=== PATIENT | female | born 1985 | race Caucasian/White ===

== ENCOUNTER 2016-12-06 17:56 | Outpatient (CLI) | payer BC ==
[~2016-12-06] VITALS: Ht 165.1 cm; Wt 82.3 kg
[~2016-12-06 17:56] MED LIST: AGM875 PO; DRV100 PO; PRED10TA PO
[2016-12-06] MEDS ORDERED: PRENTAB26 PO (20:01)
[2016-12-06] MEDS ORDERED: [UNRECOGNIZED DRUG - CODE] (20:01)
[2016-12-06 20:02] VITALS: Ht 165.1 cm; Wt 82.3 kg
--- NOTE | 2016-12-09 11:29 | EDITING REQUIRED CODING QUERY ---
CERVICAL DILATOR A cervical dilator was noted to be inserted in nursing documentation on 12/06/16. Please clarify below regarding this procedure: ( X) Cervical dilator was inserted BRIEF DESCRIPTION: Moreno balloon for ripening placed and nst performed. ( ) Cervical dilator was not inserted ( ) Other, please clarify: Thank you for your assistance, Paradise Duckworth - Airport Attendant
== END 2016-12-06 20:15 | disposition home or self-care (01) ==
LOC: C.OPB 17:56 → C.LD 17:56 → C.OPB 20:15
PROVIDERS: ATTEND Obstetrics & Gynecology
DX: O48.0 Post-term pregnancy (principal); Z3A.41 41 weeks gestation of pregnancy

== ENCOUNTER 2016-12-07 05:59 | Inpatient (IN) | payer BC ==
[~2016-12-07] VITALS: Ht 165.1 cm; Wt 82.3 kg
[~2016-12-07 05:59] MED LIST changes: -AGM875 PO; -DRV100 PO; -PRED10TA PO; +PRENTAB26 PO; +[UNRECOGNIZED DRUG - CODE]
[2016-12-07] MEDS ORDERED: LACTATED RINGER'S 1000ML 1,000 ML IV PRN (06:05)
[2016-12-07] MEDS ORDERED: LACTATED RINGER'S 1000ML 1,000 ML IV SCH ×2 (06:05→17:32)
[2016-12-07 06:12] VITALS: Ht 165.1 cm; Wt 82.3 kg
[2016-12-07] MEDS ORDERED: EpHEDrine SULFATE INJ 50 MG/ML AMP ONE (06:44)
[2016-12-07] MEDS ORDERED: FENTANYL 2MCG/ML ROPIV 1.25MG/ML 100ML BAG EPI ONE (06:44)
[2016-12-07] MEDS ORDERED: FENTANYL CITRATE INJ 50 MCG/1 ML 2 ML VIAL ONE ×2 (06:44→17:13)
[2016-12-07] MEDS ORDERED: BUPIVACAINE 0.25% 30 ML VIAL ONE (06:44)
[2016-12-07 06:48] LABS: HEMATOCRIT 33.4 % (37-47); MEAN CELL VOLUME 86.3 fL (80-100); MEAN CORPUSCULAR HEMOGLOBIN 30.2 pg (25-34); MEAN PLATELET VOLUME 11.5 fL (7.4-10.4); PLATELET COUNT 130 K/uL (130-400); RED BLOOD COUNT 3.87 M/uL (4.2-5.4); WHITE BLOOD COUNT 11.64 K/uL (4.8-10.8)
[2016-12-07] MEDS ORDERED: NALOXONE HCL INJ 1 MG in SODIUM CHLORIDE 0.9% 1000ML 1,000 ML IV PRN (07:40)
[2016-12-07] MEDS ORDERED: LACTATED RINGER'S 1000ML 500 ML IV PRN ×2 (07:40→13:50)
[2016-12-07] MEDS ORDERED: PROMETHAZINE HCL INJ 25 MG in SODIUM CHLORIDE 0.9% 50ML 50 ML IV PRN (07:45)
[2016-12-07] MEDS ORDERED: EpHEDrine SULFATE INJ 50 MG/ML AMP IV PRN (07:45)
[2016-12-07] MEDS ORDERED: DiphenhydrAMINE HCL 50 MG/ML VIAL IV PRN (07:45)
[2016-12-07] MEDS ORDERED: ONDANSETRON INJ 2 MG/ML 2 ML VIAL IV PRN (07:45)
[2016-12-07] MEDS ORDERED: NALBUPHINE HCL INJ 10 MG/ML AMP IV PRN (07:45)
[2016-12-07] MEDS ORDERED: NALOXONE HCL INJ 0.4 MG/1 ML VIAL/CARP IV PRN (07:45)
[2016-12-07] MEDS ORDERED: OXYTOCIN 30 UNITS/500ML NSS IV ONE (09:12)
[2016-12-07] MEDS ORDERED: OXYTOCIN 30 UNITS/500ML NSS IV PRN ×2 (14:00→17:45)
[2016-12-07] MEDS: FENTANYL 2MCG/ML ROPIV 1.25MG/ML 100ML BAG EPI PRN ×2 (14:53→16:48)
[2016-12-07] MEDS ORDERED: OXYCODONE/ACETAMINOPHEN 5-325 TAB PO PRN (17:45)
[2016-12-07] MEDS ORDERED: LANOLIN OINT EXT PRN ×2 (17:45)
[2016-12-07] MEDS ORDERED: DIPHTHERIA/TETANUS/PERTUSSIS 0.5 ML SYR/VIAL IM. ONE (17:45)
[2016-12-07] MEDS ORDERED: BENZOCAINE 20% AER SPR 82.5 GM CAN EXT PRN (17:45)
[2016-12-07] MEDS ORDERED: ACETAMINOPHEN 325 MG TAB PO PRN (17:45)
[2016-12-07] MEDS ORDERED: HYDROCORTISONE ACETATE 25 MG SUPP PR PRN (17:45)
--- NOTE | 2016-12-07 18:18 | Anesthesia Procedure Note ---
Anesthesia Epidural Removal Nt Date & Time Dec 07, 2016 at 18:18 Vital Signs Pain Intensity: 10.0 Notes Mental Status: alert / awake / arousable, participated in evaluation Nausea / Vomiting: adequately controlled Pain: adequately controlled Airway Patency, RR, SpO2: stable & adequate BP & HR: stable & adequate Hydration State: stable & adequate Neuraxial Anesthesia: was administered Anesthetic Complications: no major complications apparent, pt satisfied with anesthetic care Epidural: removed without complications, with tip intact
[2016-12-07] MEDS: IBUPROFEN 600 MG TAB PO PRN (19:04)
[2016-12-07 20:00] VITALS: BP 120/72; PULSE 85; TEMP 36.6; O2SAT 98
[2016-12-07] MEDS: DOCUSATE SODIUM 100 MG CAP PO SCH ×2 (20:00→21:33)
[2016-12-07] MEDS: SUPERCREAM 0.870 % 15GM JAR EXT PRN (21:33)
[2016-12-07 23:53] VITALS: BP 123/73; PULSE 83; TEMP 37.1
--- NOTE | 2016-12-08 02:49 | DELIVERY SUMMARY ---
DATE OF OPERATION: 12/07/2016 VAGINAL DELIVERY NOTE PREOPERATIVE DIAGNOSES: 1. Garrett intrauterine at 41 and 4/7 weeks. 2. Induction of labor for postdates. 3. Group B streptococcus negative. POSTOPERATIVE DIAGNOSES: Same. PROCEDURE: Spontaneous vaginal delivery and repair of second degree vaginal laceration. SURGEON: Ce Bragg MD MESMERIST: PGY-1. ESTIMATED BLOOD LOSS: 400 mL. COMPLICATIONS: None. DISPOSITION: Stable in labor and delivery. DESCRIPTION OF PROCEDURE: Taylor is a 30-year-old , who presented who presented at 41 and 4/7 weeks for induction of labor due to postdates. She received a Moreno bulb for ripening the prior night. When I arrived to take care of patient at 8:30 in the morning on 12/07/2016, she was already 6 cm dilated. She continued to progress without further augmentation until 9 cm, at which point artificial rupture of membranes was performed and Pitocin was started. She did reach complete dilation with an urge to push and was coached through her second stage of labor by the nurses. I was called for delivery when patient was beginning to crown. She was prepped and draped and delivery then occurred with patient pushing out her in the OA position followed by both shoulders and the remainder of the baby with no difficulty whatsoever. The male infant was placed on the maternal abdomen. The cord was doubly clamped and cut by the father of the baby. Cord blood was collected. The placenta delivered spontaneously and was intact with a 3-vessel cord. A second degree posterior vaginal and perineal laceration was identified, this was repaired in the usual manner with 2-0 and 3-0 Vicryl in a running-locked manner with 3 crown sutures to rebuild the perineal body and closure of the skin in a subcuticular manner over the perineum after the crown sutures were completed. At the completion of repair; the cervix, vagina and perineum were well approximated and hemostatic. The fundus was firm, lochia was minimal and patient was in stable condition having tolerated delivery well. I attest to the content of the Intraoperative Record and any orders documented therein. Any exceptio ns are noted below.
[2016-12-08 03:35] VITALS: BP 124/66; PULSE 64; TEMP 36.8
[2016-12-08 06:52] LABS: HEMATOCRIT 27.4 % (37-47)
--- NOTE | 2016-12-08 06:58 | Progress Note ---
Subjective Dec 08, 2016. Subjective conversation w/ patient, physical exam Ambulation: ambulating normally Voiding: no voiding problems Passing Gas: Yes Diet Tolerance: Regular Diet Lochia: Small Feeding Type: Breast Feeding Pain: No pain reported this morning Review of Systems Constitutional: No chills, No fever Respiratory: No cough, No shortness of breath Cardiac: No chest pain Breast: No breast pain Abdomen: No nausea, No pain, No vomiting Female : No dysuria Objective Vital Signs Date Time Temp Pulse Resp B/P Pulse Ox O2 Delivery O2 Flow Rate FiO2 12/08/16 03:35 36.8 64 20 124/66 Room Air 12/07/16 23:55 Room Air 12/07/16 23:53 37.1 83 20 123/73 Room Air 12/07/16 20:00 98 Room Air 12/07/16 20:00 36.6 85 16 120/72 98 Room Air Physical Exam General Appearance: WELL-APPEARING, WD/WN, NO APPARENT DISTRESS Respiratory/Chest: lungs clear, normal breath sounds Cardiovascular: regular rate, rhythm, no gallop, no murmur Abdomen: normal bowel sounds, non tender, soft Fundus: Firm, Relation to Umbilicus (1cm below umbilicus) Extremities: no calf tenderness Laboratory Results Last 24 Hours Test 12/08/16 06:37 Hemoglobin 9.4 g/dL Hematocrit 27.4 % Medications Current Inpatient Medications Medications (Trade) Dose Ordered Sig/Lani Route Start Time Stop Time Status Last Admin Dose Admin Lactated Ringer's (Lr 1000ml) 1,000 ml @ 125 mls/hr Q8H IV 12/07/16 17:32 01/06/17 17:31 Oxytocin (Pitocin IV) 30 units UD PRN IV 12/07/16 17:45 01/06/17 17:44 Benzocaine (Dermoplast Aero Spr) 1 appln PRN PRN EXT 12/07/16 17:45 01/06/17 17:44 12/07/16 21:33 1 APPLN Cocaine HCl (Supercream 0.870% Cr) BID PRN EXT 12/07/16 17:45 12/21/16 17:44 12/07/16 21:33 15 GM Hydrocortisone Acetate (Anusol Hc Supp) 25 mg BID PRN VT 12/07/16 17:45 01/06/17 17:44 Lanolin (Lanolin Oint) PRN PRN EXT 12/07/16 17:45 01/06/17 17:44 Prenat Multivit/ [place]/Iron/Folic Ac ( Vitamin Tab) 1 tab DAILY PO 12/08/16 08:00 01/07/17 07:59 Ibuprofen (Motrin Tab) 600 mg Q4H PRN PO 12/07/16 17:45 01/06/17 17:44 12/07/16 19:04 600 MG Acetaminophen (Tylenol Tab) 650 mg Q6H PRN PO 12/07/16 17:45 01/06/17 17:44 Oxycodone/ Acetaminophen (Percocet 5-325MG Tab) 1 tab Q4H PRN PO 12/07/16 17:45 12/21/16 17:44 Docusate Sodium (coLACE CAP) 100 mg BID PO 12/07/16 20:00 01/06/17 19:59 12/07/16 21:33 100 MG Ferrous Sulfate (Feosol Tab) 325 mg DAILY PO 12/08/16 08:00 01/07/17 07:59 Assessment and Plan Post- Day#: 1 Continue Routine Care: - Vital Signs reviewed and WNL (temp max 36.4) - Blood Type: A+, GBS- , Rubella Immune - Patient doing well clinically - Encourage Ambulation today - Pain well controlled - Tolerating PO diet Resident Physician Supervision Note: I interviewed and examined the patient. Discussed with Dr. Dueñas and agree with findings and plan as documented in the note. Any exceptions or clarifications are listed here: [None] Documented By: Ce Bragg
[2016-12-08 08:00] VITALS: BP 134/86; PULSE 79; TEMP 36.8
[2016-12-08] MEDS: PRENATAL VITAMIN TAB PO SCH (08:12)
[2016-12-08] MEDS: DOCUSATE SODIUM 100 MG CAP PO SCH ×2 (08:12→20:26)
[2016-12-08] MEDS: FERROUS SULFATE 325 MG TAB PO SCH (08:12)
[2016-12-08] MEDS: IBUPROFEN 600 MG TAB PO PRN ×3 (08:17→20:27)
[2016-12-08 11:30] VITALS: BP 111/65; PULSE 68; TEMP 36.8
[2016-12-08 23:30] VITALS: BP 128/86; PULSE 73; TEMP 36.4
--- NOTE | 2016-12-09 06:48 | Progress Note ---
Subjective Dec 09, 2016. Subjective conversation w/ patient, physical exam Ambulation: ambulating normally Voiding: no voiding problems Passing Gas: Yes Diet Tolerance: Regular Diet Lochia: Small Feeding Type: Breast Feeding Pain: No pain reported this morning Review of Systems Constitutional: No chills, No fever Respiratory: No cough, No shortness of breath Cardiac: No chest pain Breast: No breast pain Abdomen: No nausea, No pain, No vomiting Female : No dysuria Objective Vital Signs Date Time Temp Pulse Resp B/P Pulse Ox O2 Delivery O2 Flow Rate FiO2 12/08/16 23:30 36.4 73 18 128/86 12/08/16 23:30 Room Air 12/08/16 11:30 36.8 68 18 111/65 Room Air 12/08/16 08:00 36.8 79 18 134/86 Room Air 12/08/16 08:00 Room Air Physical Exam General Appearance: WELL-APPEARING, WD/WN, NO APPARENT DISTRESS Respiratory/Chest: lungs clear, normal breath sounds Cardiovascular: regular rate, rhythm, no gallop, no murmur Abdomen: non tender, soft Fundus: Firm, Relation to Umbilicus (At umbilicus) Extremities: no calf tenderness Medications Current Inpatient Medications Medications (Trade) Dose Ordered Sig/Lani Route Start Time Stop Time Status Last Admin Dose Admin Lactated Ringer's (Lr 1000ml) 1,000 ml @ 125 mls/hr Q8H IV 12/07/16 17:32 01/06/17 17:31 Oxytocin (Pitocin IV) 30 units UD PRN IV 12/07/16 17:45 01/06/17 17:44 Benzocaine (Dermoplast Aero Spr) 1 appln PRN PRN EXT 12/07/16 17:45 01/06/17 17:44 12/07/16 21:33 1 APPLN Cocaine HCl (Supercream 0.870% Cr) BID PRN EXT 12/07/16 17:45 12/21/16 17:44 12/07/16 21:33 15 GM Hydrocortisone Acetate (Anusol Hc Supp) 25 mg BID PRN [place] 12/07/16 17:45 01/06/17 17:44 Lanolin (Lanolin Oint) PRN PRN EXT 12/07/16 17:45 01/06/17 17:44 Prenat Multivit/ Fixed Income Portfolio Manager/Iron/Folic Ac ( Vitamin Tab) 1 tab DAILY PO 12/08/16 08:00 01/07/17 07:59 12/08/16 08:12 1 TAB Ibuprofen (Motrin Tab) 600 mg Q4H PRN PO 12/07/16 17:45 01/06/17 17:44 12/08/16 20:27 600 MG Acetaminophen (Tylenol Tab) 650 mg Q6H PRN PO 12/07/16 17:45 01/06/17 17:44 Oxycodone/ Acetaminophen (Percocet 5-325MG Tab) 1 tab Q4H PRN PO 12/07/16 17:45 12/21/16 17:44 Docusate Sodium (coLACE CAP) 100 mg BID PO 12/07/16 20:00 01/06/17 19:59 12/08/16 20:26 100 MG Ferrous Sulfate (Feosol Tab) 325 mg DAILY PO 12/08/16 08:00 01/07/17 07:59 12/08/16 08:12 325 MG Assessment and Plan Post- Day#: 2 Continue Routine Care: - Vital Signs reviewed and WNL (temp max 36.8) - Blood Type: A+, GBS- , Rubella Immune - Patient doing well clinically - Encourage Ambulation today - Pain well controlled - Tolerating PO Diet Well - Patient ready for discharge today, may require nesting based on status of Resident Physician Supervision Note: I was present with Dr. Dueñas during the history and exam. I discussed the case with the resident and agree with the findings and plan as documented in the note. Any exceptions or clarifications are listed here: PPD#2, doing well. Discharge to home. RTO 6w . Documented By: Taylor Whipple
--- NOTE | 2016-12-09 06:50 | Discharge Instructions ---
Discharge Instructions Admission Reason for Admission: LABOR Discharge Discharge Diagnosis / Problem: Vaginal Delivery Discharge Goals Goal(s): Routine recovery after delivery Medications Continue Dispensed Medications: supercream, dermaplast, tucks, lansinoh Activity Recommendations Activity Limitations: per Instructions/Follow-up section . Instructions / Follow-Up Instructions / Follow-Up ACTIVITY RECOMMENDATIONS: * Gradual return to full activity over the next 2-3 weeks. * No lifting - nothing heavier than baby over the next 2-3 weeks. * Do not engage in vigorous exercise, sexual activity or sports until cleared by your physician. * Do not drive or operate any motorized equipment until cleared by your physician. * You may shower/bathe daily. MEDICATIONS: For discomfort or pain, you may use Acetaminophen (Tylenol), Ibuprofen (Advil), or Naproxen (Aleve) following the package directions. For constipation you may use Colace following the package directions. BREAST CARE: If you are not breast feeding: * Wear a supportive bra 24 hours a day for one to two weeks. * Avoid stimulating your breasts and nipples as much as possible during the first few weeks after delivery. * When taking a shower, have the warm water hit your back, not breasts. * When your breasts feel full, apply ice packs. Usually three to four times a day helps ease the discomfort. * Take a mild pain medication (Tylenol / Motrin) when you are uncomfortable. If breast feeding: * Use breast milk to lubricate nipples. Lansinoh cream may be used for sore nipples. You do not need to remove cream prior to breast feeding. If using a different brand of cream, check the label for directions regarding removal of cream prior to nursing. * Wear a supportive bra. * If having problems with breasts or breast feeding, call a storage consultant or your health care provider. EPISIOTOMY CARE: After delivery, if you have an episiotomy (stitches), the following steps will ease discomfort and aid healing. * For the first 24 hours after delivery, place ice packs next to your episiotomy to help reduce swelling. * After the first 24 hour-period, sitz baths, either portable or in the tub, are suggested. A shower with a shower arm sprayed over the episiotomy may be comforting. * Kina care should be done after each voiding and bowel movement. Squirt warm water from a plastic bottle over the perineum (region of the body between the anus and urinary opening) and pat dry. * Use Dermoplast to ease discomfort. Shake container. [place] directly over the episiotomy. Place a Tucks on a clean sanitary pad next to your episiotomy. SPECIAL CARE INSTRUCTIONS: When you are discharged from the hospital, it is important for you to follow the instructions listed below: * During the first week at home, you should be able to care for yourself and your baby. In addition, the usual light household activities are encouraged. * Limit your activities to the way you feel. Do not try to clean the house or move furniture. Be sensible. * If you actively engage in sports and have done so up until the time of your delivery, you may resume these activities as soon as you feel able. This may take up to one month or even longer. Use good judgment. * Continue to take your vitamins for at least six weeks after the of your baby. * Your diet need not be limited unless you were on a special diet before your delivery. Breast-feeding mothers need around 2500 calories per day and at least 64-80 ounces of fluid per day (8 to 10 glasses). * You should eat foods from the four major food groups. Crash diets or fad diets are to be avoided. Eating lean meats, fresh fruits and vegetables, low-fat dairy products, high fiber foods and a regular exercise program, will help you get back to your pre- weight without putting your health at risk. * Constipation is sometimes a problem after delivery. Take a mild laxative as needed. If breast feeding, Milk of Magnesia is acceptable to use. You may use a suppository or Fleets enema if no episiotomy. * A daily shower or tub bath is suggested. Be sure to thoroughly and gently dry the perineum. * A bloody vaginal discharge will usually continue until around four weeks post . A small amount of bleeding may continue for as long as six weeks. Vaginal discharge changes from the bright red bleeding after delivery to pink then brownish and finally yellowish-pink before becoming white and disappearing. * Bleeding may increase with activity. Your first period may come in 4-8 weeks. If you are breast feeding, your period may be delayed even longer. * [place] (sex) can begin whenever both you and your partner feel comfortable and do not have any form of genital infection. It is recommended that you wait at least six weeks for internal and external healing to occur. If you have questions, please talk to your health care practitioner. A condom should be used to prevent infection and . * Foreplay, gentle intercourse and lubrication is very important the first several times to prevent pain. A water-based lubricant such as K-Y jelly or Astroglide may be used. * If you have RH negative blood and your baby is RH positive, you will receive RHOGAM by injection prior to discharge. The nurse will give you a card to keep with you that has the date and place that you received RHOGAM after delivery. * During your care, you had a Rubella screen done to check for the presence of rubella antibodies in your blood. If your test was negative, you will receive a Rubella vaccine prior to discharge. This vaccine may cause a fever, soreness at the injection site and flu-like symptoms. If these symptoms persist, notify your health care practitioner. is not advised for one month after a Rubella vaccine. * Verbalizes understanding of car seat law as reviewed with patient nursing. * Car Seat hand-out given and reviewed with patient by nursing. * Shaken baby information reviewed with patient by nursing. Call you doctor if: * Heavy bleeding (saturating several pads an hour) or passing clots the size of your fist. * A fever >101 degrees F (38.3 degrees C) on two occasions four hours apart and /or chills. * Unusual pain in the pelvic or vaginal areas. * "Baby Blues" lasting longer than two weeks. If you have any questions or concerns, call your health care practitioner at . FOLLOW UP VISIT: * Please call the office at to schedule a 6 week examination. It is important you keep this appointment. It is important for you to make arrangements for either yearly or twice yearly check-ups thereafter. Current Hospital Diet Patient's current hospital diet: Regular OB Diet Discharge Diet Recommended Diet: Regular Diet Pending Studies Studies pending at discharge: no Medical Emergencies . Who to Call and When: Medical Emergencies: If at any time you feel your situation is an emergency, please call 911 immediately. . Non-Emergent Contact Non-Emergency issues call your: Fiction And Nonfiction Prose Writer . . "Provider Documentation" section prepared by Kleber Dueñas. VTE Core Measure Inpt VTE Proph given/why not?: Treatment not indicated
[2016-12-09 08:30] VITALS: BP 125/77; PULSE 90; TEMP 36.5
[2016-12-09] MEDS: DOCUSATE SODIUM 100 MG CAP PO SCH (08:38)
[2016-12-09] MEDS: FERROUS SULFATE 325 MG TAB PO SCH (08:38)
[2016-12-09] MEDS: PRENATAL VITAMIN TAB PO SCH (08:38)
[2016-12-09] MEDS: SUPERCREAM 0.870 % 15GM JAR EXT PRN (08:39)
[2016-12-09] MEDS: IBUPROFEN 600 MG TAB PO PRN ×2 (08:39→16:59)
[2016-12-09 15:15] VITALS: BP 118/80; PULSE 81; TEMP 37.1
[2016-12-09 17:45] VITALS: BP_DIAS 80; PULSE 81; TEMP 37.1
== END 2016-12-09 17:45 | disposition home or self-care (01) | DRG 775 ==
LOC: C.LD 05:59 → C.OPB 05:59 → C.LD 06:08 → C.OPB 06:08 → C.OBG 20:04
PROVIDERS: ADMIT Obstetrics & Gynecology; ATTEND Obstetrics & Gynecology
PROC: 10907ZC Drainage of Amniotic Fluid, Therapeutic from Products of Conception, Via Natural or Artificial Opening (ICD-10-PCS; principal; 2016-12-07)
PROC: 3E033VJ Introduction of Other Hormone into Peripheral Vein, Percutaneous Approach (ICD-10-PCS; principal; 2016-12-07)
PROC: 0KQM0ZZ Repair Perineum Muscle, Open Approach (ICD-10-PCS; principal; 2016-12-07)
PROC: 10E0XZZ Delivery of Products of Conception, External Approach (ICD-10-PCS; principal; 2016-12-07)
PROC: 0U7C7ZZ Dilation of Cervix, Via Natural or Artificial Opening (ICD-10-PCS; principal; 2016-12-07)
DX: O48.0 Post-term pregnancy (principal); Z37.0 Single live birth; O70.1 Second degree perineal laceration during delivery; Z3A.41 41 weeks gestation of pregnancy

== ENCOUNTER → 2017-03-22 | Outpatient (CLI) | payer BC ==
[~2017-03-22] MED LIST changes: -[UNRECOGNIZED DRUG - CODE]
== END | disposition home or self-care (01) ==
LOC: C.LABSPEC 17:42
PROVIDERS: ATTEND Obstetrics & Gynecology
DX: N76.0 Acute vaginitis (principal)

== ENCOUNTER → 2017-08-23 | Outpatient (CLI) | payer BC | END | disposition home or self-care (01) | LOC: C.PAPS 10:50 | PROVIDERS: ATTEND Obstetrics & Gynecology | DX: Z01.419 Encounter for gynecological examination (general) (routine) without abnormal findings (principal) ==

== ENCOUNTER → 2017-08-23 | Outpatient (CLI) | payer BC ==
[2017-08-23 18:03] LABS: THYROID STIMULATING HORMONE 11.7 uIu/ml (0.300-4.500)
== END | disposition home or self-care (01) ==
LOC: C.LAB1850 15:40
PROVIDERS: ATTEND Obstetrics & Gynecology
DX: R63.4 Abnormal weight loss (principal)

== ENCOUNTER → 2017-10-15 | Outpatient (CLI) | payer BC ==
[2017-10-15 17:51] LABS: THYROID STIMULATING HORMONE 1.21 uIu/ml (0.300-4.500)
== END | disposition home or self-care (01) ==
LOC: C.LAB1850 16:20
PROVIDERS: ATTEND Physician Assistant
DX: E03.9 Hypothyroidism, unspecified (principal)

== ENCOUNTER → 2017-12-18 | Outpatient (CLI) | payer BC | END | disposition home or self-care (01) | LOC: C.LAB 07:36 | PROVIDERS: ATTEND Physician Assistant | DX: E03.9 Hypothyroidism, unspecified (principal); Z11.59 Encounter for screening for other viral diseases; Z13.220 Encounter for screening for lipoid disorders ==

== ENCOUNTER → 2018-02-18 | Outpatient (CLI) | payer BC | END | disposition home or self-care (01) | LOC: C.LABSPEC 15:35 | PROVIDERS: ATTEND Physician Assistant | DX: N76.0 Acute vaginitis (principal) ==

== ENCOUNTER → 2018-03-15 | Outpatient (CLI) | payer BC | END | disposition home or self-care (01) | LOC: C.LABSPEC 17:59 | PROVIDERS: ATTEND Physician Assistant | DX: R39.9 Unspecified symptoms and signs involving the genitourinary system (principal) ==

== ENCOUNTER → 2018-03-29 | Outpatient (CLI) | payer BC | END | disposition home or self-care (01) | LOC: C.LABPVFM 10:51 | PROVIDERS: ATTEND Physician Assistant | DX: E03.9 Hypothyroidism, unspecified (principal) ==

== ENCOUNTER → 2018-07-05 | Outpatient (CLI) | payer BC | END | disposition home or self-care (01) | LOC: C.LABPVFM 14:58 | PROVIDERS: ATTEND Internal Medicine Endocrinology, Diabetes & Metabolism | DX: E03.9 Hypothyroidism, unspecified (principal) ==

== ENCOUNTER → 2018-07-22 | Outpatient (CLI) | payer BC | END | disposition home or self-care (01) | LOC: C.LABSPEC 13:59 | PROVIDERS: ATTEND Obstetrics & Gynecology | DX: O99.281 Endocrine, nutritional and metabolic diseases complicating pregnancy, first trimester (principal); N76.0 Acute vaginitis ==

== ENCOUNTER → 2018-07-22 | Outpatient (CLI) | payer BC | END | disposition home or self-care (01) | LOC: C.PAPS 14:54 | PROVIDERS: ATTEND Obstetrics & Gynecology | DX: Z12.4 Encounter for screening for malignant neoplasm of cervix (principal) ==

== ENCOUNTER 2019-03-05 10:32 | Inpatient (IN) ==
[2019-03-05] MEDS ORDERED: LACTATED RINGER'S 1,000 ML IV PRN (11:13)
[2019-03-05] MEDS ORDERED: OXYTOCIN 30 UNITS/500 ML BAG IV PRN ×2 (11:13→14:33)
[2019-03-05] MEDS ORDERED: PENICILLIN G POTASSIUM 3 MU in DEXTROSE 5% 100 ML IV PRN (11:13)
[2019-03-05] MEDS ORDERED: LACTATED RINGER'S 1,000 ML IV SCH (11:15)
[2019-03-05] MEDS ORDERED: PENICILLIN G POTASSIUM 6 MU in DEXTROSE 5% 250 ML IV ONE (11:30)
[2019-03-05 11:32] LABS: Hemoglobin 11.1 g/dL (12.0-16.0); Mean Corpuscular Volume 84.6 fL (80-100); Mean Platelet Volume 9.7 fL (7.4-10.4); Platelet Count 262 K/uL (130-400); RDW Coefficient of Variation 12.6 % (11.5-14.5); RDW Standard Deviation 38.6 fL (36.4-46.3); White Blood Count 11.22 K/uL (4.8-10.8)
[2019-03-05 11:33] LABS: Mean Corpuscular Hgb Conc 33.6 g/dL (32-36)
--- NOTE | 2019-03-05 11:45 | History & Physical Report ---
Date of Service March 05, 2019 Assessment & Plan (1) 39 weeks gestation of : Admit to [facility] for epidural when she desires. History of Present Illness Chief Complaint: contractions Primary Care Provider: NO PCP 33yo @ 39 02/02 presents in spontaneous labor. Worsening ctx over the past few hours. No vaginal bleeding or gushing of fluid. + movement. complicated by GBS+, CMV exposure with negative IgM/IgG x 2, echo was negative. Hypothyroidism, takes synthroid. Recurrent shingles of left hand, had recurrence during this - was treated with valtrex. Allergies Allergy/AdvReac Type Severity Reaction Status Date / Time No Known Allergies Allergy Unknown Verified 12/06/16 20:00 Home Medications Home Medications Medication Instructions Recorded Confirmed Type levothyroxine [Synthroid] 88 mcg PO DAILY 03/05/19 03/05/19 History vit-iron fum-folic ac 1 tab PO DAILY 03/05/19 03/05/19 History [ Vitamin] Patient History Medical History ACL tear Family History Grandmother (Maternal) Hypertension Grandfather (Paternal) Cancer Social History Preferred Language: [place] Communication Ability: Effective Beliefs That Will Affect Care: None marital status: Current Living Situation: Family Other Information That Helps Us Care for You: No Feels Safe at Home: Yes Safety Concerns: Feels Safe At This Time Smoking Status: Never smoker Hx Alcohol Use: No Hx Substance Use: No Physical Exam Vital Signs (Past 24 Hours): Last Vital Signs Temp 36.8 C 03/05/19 11:26 Pulse 83 03/05/19 11:26 Resp 22 03/05/19 10:42 BP 129/72 03/05/19 11:26 Physical Exam: Gen: AAOx3 NAD CV: RRR L: CTAB Abd: soft, gravid, NTTP Ext: no edema SVE: /-1 FHT: FHT Cat 1 [place]: Q 2-5 min
[2019-03-05] MEDS ORDERED: BUPIVACAINE 0.25% 30 ML VIAL ONE (13:00)
[2019-03-05] MEDS ORDERED: ePHEDrine sulfate 50 MG/ML AMP ONE (13:00)
[2019-03-05] MEDS ORDERED: fentaNYL 2MCG/ML ROPIV 1.25MG/ML 100 ML BAG EPI ONE (13:01)
[2019-03-05] MEDS ORDERED: fentaNYL citrate 100 MCG/2 ML VIAL ONE (13:01)
[2019-03-05] MEDS ORDERED: BISACODYL 10 MG SUPP PR PRN (14:33)
[2019-03-05] MEDS ORDERED: HYDROCORTISONE ACETATE 25 MG SUPP PR PRN (14:33)
[2019-03-05] MEDS ORDERED: BENZOCAINE 20% AER SPR 82.5 GM CAN EXT PRN (14:33)
[2019-03-05] MEDS ORDERED: DIPHTHERIA/TETANUS/PERTUSSIS 0.5 ML SYR/VIAL IM ONE (14:33)
[2019-03-05] MEDS ORDERED: SUPERCREAM 0.870% 15 GM JAR EXT PRN (14:33)
[2019-03-05] MEDS ORDERED: OXYCODONE/ACETAMINOPHEN 5mg/325mg TAB PO PRN (14:33)
--- NOTE | 2019-03-05 14:33 | Procedure Note ---
Vaginal Delivery Summary Date of Service March 05, 2019 Vaginal Delivery Summary Predelivery diagnoses: 33yo @ 39 02/02, spontaneous labor, GBS+, CMV exposure (neg IgG/IgM x 2), hypothyroidism, shingles Postdelivery diagnoses: same + 2nd degree perineal laceration Procedure: spontaneous vaginal delivery, repair of 2nd degree perineal laceration Surgeon: Dr Whipple EBL: 300ml Complications: none Findings: viable male , Apgars 9/10. Weight pending, please see nursery records. Description of delivery: Patient presented in spontaneous labor, progressed to 9.5 cm dilation. Artificial rupture of membranes performed for scant amount of clear fluid. The patient then felt incredible urge to push, anterior lip of cervix was pushed behind the head, and patient was then complete dilation. 2 more pushes, and vaginal delivery of the . Baby delivered from the left occiput anterior position, no nuchal cord was noted, anterior and posterior shoulders delivered, followed by body. The previous placed in mother's abdomen, spontaneous cry was heard. Delayed cord clamping was employed. The cord was doubly clamped and cut, cord blood was obtained. A perineal laceration was noted, and injected with lidocaine. Placenta was delivered spontaneously intact with a three-vessel cord. The uterus and vagina were swabbed of all clots and debris, Pitocin was given and the uterus became firm. The cervix, vagina, perineum were inspected, and a second degree perineal laceration was noted. This was confirmed to be a second-degree laceration by rectal examination. The anal sphincter muscle was intact, however the laceration carried down to the muscle, therefore a [id number] stitch of 3-0 chromic was used to support the muscle. The remaining perineal laceration was repaired in standard fashion with 3-0 Vicryl. There was a remaining pumping blood vessel, at the vaginal apex of the laceration, this was made hemostatic by 2 [id number] sutures. A rectal examination revealed no sutures in the rectum. Excellent hemostasis was observed. Sponge, instrument, needle counts were correct x2 at the conclusion of the delivery. Mother and baby recovered in stable and good condition in the room.
[2019-03-05] MEDS: IBUPROFEN 600 MG TAB PO PRN (15:01)
[2019-03-05] MEDS: ACETAMINOPHEN 325 MG TAB PO PRN ×2 (17:14→23:43)
[2019-03-05] MEDS ORDERED: MoRPHine SULFATE 4 MG/ML 1 ML CARP\\VIAL IV STA (17:55)
[2019-03-05] MEDS ORDERED: MoRPHine SULFATE 4 MG/ML 1 ML CARP\\VIAL ONE (17:56)
[2019-03-05] MEDS ORDERED: ONDANSETRON INJ 2 MG/ML 2 ML VIAL ONE (18:03)
[2019-03-05] MEDS ORDERED: MoRPHine SULFATE 10 MG/ML CARP/VIAL ONE (18:10)
[2019-03-05] MEDS ORDERED: MoRPHine SULFATE 10 MG/ML CARP/VIAL IV STA (18:12)
[2019-03-05 18:13] LABS: Hematocrit (blood only) 30.5 % (37-47); Hemoglobin 10.3 g/dL (12.0-16.0); Mean Corpuscular Volume 84.3 fL (80-100); Mean Platelet Volume 10.2 fL (7.4-10.4); Platelet Count 255 K/uL (130-400); RDW Coefficient of Variation 12.6 % (11.5-14.5); RDW Standard Deviation 38.9 fL (36.4-46.3); Red Blood Count 3.62 M/uL (4.2-5.4); White Blood Count 14.85 K/uL (4.8-10.8)
[2019-03-05 18:18] LABS: Mean Corpuscular Hgb Conc 33.8 g/dL (32-36)
--- NOTE | 2019-03-05 18:20 | Obstetrical Progress Note ---
Date of Service March 05, 2019 Subjective Called to patient's room - she developed sudden severe vaginal pain, and developed perineal hematoma approx 5cm. Solid, hard in right perineal area. No severe vaginal bleeding. Patient is writhing in pain during exam. She was given 4mg IV morphine, will give another 6mg morphine as we wait for the OR team to arrive. Stat H/H ordered. Zofran 4mg IV given. I discussed with patient that this is a vaginal hematoma, due to her severe pain, recommend that we go to OR for exam under anesthesia, evacuation of hematoma, likely re-opening of perineal suturing and re-approximation of the perineal tear. She is agreeable, informed consent obtained. Questions answered. Will proceed to OR immediately. Anesthesia and OR team have been called for STAT surgery. Physical Exam Vital Signs (Past 24 Hours): Last Vital Signs Temp 36.9 C 03/05/19 15:54 Pulse 82 03/05/19 15:54 Resp 20 03/05/19 15:54 BP 121/72 03/05/19 15:54 Pulse Ox 88 L 03/05/19 13:30
--- NOTE | 2019-03-05 18:40 | Anesthesiology Consultation ---
Date of Service March 05, 2019 Assessment & Plan Chart Review Chart Review: Acceptable Risk for Surgery and Patient NOT seen in Pre Admission Testing Consults Requested none ASA ASA2E Proposed Anesthesia Anesthesia Type: General and MAC Spinal Risk / Benefits Reviewed With: PT / POA / Parent / Guardian, Accepts Plan and Informed Consent Obtained NPO Date Last Intake of Fluids: 03/05/19 Time Last Intake of Fluids: 17:30 Date Last Intake of Solids: 03/05/19 Time Last Intake of Solids: 17:30 History Height/Weight Height: 5 ft 5 in Weight: 75.75 kg Allergies Allergy/AdvReac Type Severity Reaction Status Date / Time No Known Allergies Allergy Unknown Verified 12/06/16 20:00 Medications Home Medications Medication Instructions Recorded Confirmed Last Taken levothyroxine [Synthroid] 88 mcg PO DAILY 03/05/19 03/05/19 03/05/19 0400 vit-iron fum-folic ac 1 tab PO DAILY 03/05/19 03/05/19 03/04/19 18:00 [ Vitamin] 1 Active Medications Generic Name Dose Route Start Last Admin Trade Name Freq PRN Reason Stop Dose Admin Acetaminophen 650 mg 03/05/19 14:33 03/05/19 17:14 Tylenol PO 04/04/19 14:32 650 mg Q6H PRN Administration Pain/BAUTISTA/Fever Benzocaine 1 appln 03/05/19 14:33 03/05/19 17:11 Dermoplast Pain Relieving [place] EXT 04/04/19 14:32 82.5 appln PRN PRN Administration Perineal Discomfort Cocaine HCl 1 gm 03/05/19 14:33 03/05/19 17:10 Supercream 0.870% EXT 03/19/19 14:32 15 ml BID PRN Administration Hemorrhoidal Inflammation Ibuprofen 600 mg 03/05/19 14:33 03/05/19 15:01 Motrin PO 04/04/19 14:32 600 mg Q4H PRN Administration Pain/BAUTISTA/Cramping/Fever Past Medical History Medical History ACL tear Anemia Hypothyroid Past Family History Family History Grandmother (Maternal) Hypertension Grandfather (Paternal) Cancer Past Anesthesia History No Hx of Anesthesia Complications and No Family Hx of Anesthesia Complications History of PONV No Motion Sickness Screening History of Motion Sickness: No Social History Smoking Status: Never smoker Do You Dip or Chew Tobacco: No Hx Alcohol Use: No Hx Substance Use: No Exercise / Class Metabolic Activity II 4-5 Yardwork/Stairs/Walk up hill Physical Exam Vital Signs Last Vital Signs Temp 36.9 C 03/05/19 15:54 Pulse 68 03/05/19 18:33 Resp 20 03/05/19 18:33 BP 113/66 03/05/19 18:33 Pulse Ox 88 L 03/05/19 13:30 ENMT Mouth: no dentition abnormality Thyromental Distance: > or= 3.5 Finger Breadths Mallampati Class: II Neck normal visual inspection and trachea midline; neck extension not limited Respiratory normal respiratory effort Auscultation: lungs clear to auscultation bilaterally Cardiovascular Rate/Rhythm: regular rate and regular rhythm Heart Sounds: no murmur Musculoskeletal Spine: normal cervical ROM Neurologic moves all extremities Motor/Sensory: no sensory deficit Psychiatric Orientation: alert and oriented x 3 Testing Laboratory Results 03/05/19 18:05
[2019-03-05] MEDS ORDERED: MIDAZOLAM HCL 1 MG/ML 2ML VIAL ONE (19:01)
[2019-03-05] MEDS ORDERED: ATROPINE SULFATE 0.1 MG/ML 10ML SYR IV PRN (19:40)
[2019-03-05] MEDS ORDERED: ONDANSETRON INJ 2 MG/ML 2 ML VIAL IV PRN (19:40)
[2019-03-05] MEDS ORDERED: fentaNYL citrate 100 MCG/2 ML VIAL IV PRN (19:40)
[2019-03-05] MEDS ORDERED: ARISTA ABSORBABLE HEMOSTAT 3GM TOP ONE (19:56)
[2019-03-05 20:13] LABS: Basophils # (auto) 0.01 K/uL (0-0.2); Basophils % (auto) 0.1 %; Eosinophils # (auto) 0.02 K/uL (0-0.5); Eosinophils % (auto) 0.2 %; Hematocrit (blood only) 26.6 % (37-47); Immature Granulocytes # (auto) 0.04 K/uL (0.00-0.02); Immature Granulocytes % (auto) 0.3 %; Lymphocytes # (auto) 1.23 K/uL (1.2-3.4); Lymphocytes % (auto) 9.5 %; Mean Corpuscular Volume 83.4 fL (80-100); Mean Platelet Volume 9.8 fL (7.4-10.4); Monocytes # (auto) 0.83 K/uL (0.11-0.59); Monocytes % (auto) 6.4 %; Neutrophils # (auto) 10.77 K/uL (1.4-6.5); Neutrophils % (auto) 83.5 %; Platelet Count 228 K/uL (130-400); RDW Coefficient of Variation 12.5 % (11.5-14.5); RDW Standard Deviation 37.9 fL (36.4-46.3); Red Blood Count 3.19 M/uL (4.2-5.4)
[2019-03-05 20:16] LABS: Mean Corpuscular Hgb Conc 33.8 g/dL (32-36)
[2019-03-05] MEDS ORDERED: ONDANSETRON INJ 2 MG/ML 2 ML VIAL IV STA (20:36)
--- NOTE | 2019-03-05 20:36 | Post Operative Brief Note ---
Immediate Post Op Note v1 Date of Surgery March 05, 2019 Pre & Post Diagnosis Operation Date: 03/05/19 19:00 Pre-Op Diagnosis: vaginal hematoma Post-Op Diagnosis: vaginal hematoma Procedure Operation Date: 03/05/19 19:00 Actual Procedures Evacuation of vaginal hematoma, exam under anesthesia, suture ligation of bleeding vessels, repair of perineal laceration, insertion of Bakri balloon, vaginal packing (one lap sponge) Surgeon Taylor Whipple, DO Compound Worker None Estimated Blood Loss 700 Findings Consistent with Post-Op Diagnosis Large vaginal hematoma - bilateral vaginal sulci. Multiple small oozing bleeding sites. Firm fundus throughout. Fluids 1300ml Specimens none Drains Moreno Catheter and Other (Bakri Balloon) Anesthesia Type Spinal Complications none Disposition Accompanied Patient To Recovery: No Disposition: Recovery Room
--- NOTE | 2019-03-05 21:11 | Anesthesiology Progress Note ---
Date of Service March 05, 2019 Anesthesia Post Procedure Vital Signs Vital Signs: Temp Pulse Pulse Resp BP BP Pulse Ox 03/05/19 21:00 81 13 119/68 97 03/05/19 20:50 82 14 122/70 98 03/05/19 20:43 36.9 C 69 12 127/88 97 03/05/19 18:33 68 20 113/66 03/05/19 18:02 94 H 28 H 141/86 H 03/05/19 15:54 36.9 C 82 20 121/72 03/05/19 15:22 97 H 18 117/75 03/05/19 15:07 92 H 113/85 03/05/19 14:52 86 18 148/71 H 03/05/19 14:37 80 154/74 H 03/05/19 14:22 85 129/76 03/05/19 14:07 82 141/82 H 03/05/19 13:30 84 88 L 03/05/19 13:29 91 H 100 03/05/19 13:24 86 100 03/05/19 13:21 78 93 03/05/19 13:19 83 100 03/05/19 13:14 83 100 03/05/19 13:09 88 100 03/05/19 11:26 36.8 C 83 129/72 03/05/19 10:49 83 129/72 03/05/19 10:42 36.8 C 22 Pain Intensity Lower Abdomen: Pain Intensity: 2 Notes Mental Status: alert / awake / arousable Patient Amnestic to Procedure: Yes Nausea / Vomiting: adequately controlled Pain: adequately controlled Airway Patency, RR, SpO2: stable & adequate BP & HR: stable & adequate Hydration State: stable & adequate Neuraxial Anesthesia: was administered and sensory block is resolving Anesthetic Complications: no major complications apparent
[2019-03-05 21:14] LABS: Partial Thromboplastin Ratio 0.9; Partial Thromboplastin Time 23.4 Seconds (21.0-31.0); Prothrombin Time 10.1 Seconds (9.0-12.0)
--- NOTE | 2019-03-05 21:26 | Operative Report ---
Post Operative Report Pre & Post Diagnosis Operation Date: 03/05/19 19:00 Pre-Op Diagnosis: vaginal hematoma Post-Op Diagnosis: vaginal hematoma Procedure Operation Date: 03/05/19 19:00 Actual Procedures Evacuation of vaginal hematoma, exam under anesthesia, suture ligation of bleeding vessels, repair of perineal laceration, insertion of Bakri balloon, vaginal packing (one lap sponge) Surgeon Taylor Whipple, DO Business Insight And Analytics Manager None Estimated Blood Loss 700 Findings Consistent with Post-Op Diagnosis Large vaginal hematoma - bilateral vaginal sulci. Multiple small oozing bleeding sites. Firm fundus throughout. Fluids 1300 ml Specimens none Drains Bakri balloon, bowser catheter Anesthesia Type Spinal Complications none Disposition Accompanied Patient To Recovery: No Disposition: Recovery Room Indications 33yo with spontaneous vaginal delivery earlier today. She developed a large vaginal hematoma - approx 5cm, sudden onset and severe pain. She was consented for exam under anesthesia and taken immediately to the OR. Description of Procedure Patient was taken to the operating room, spinal anesthesia was administered. She was prepared and draped in the usual sterile fashion with feet in yellowfin stirrups in the dorsal lithotomy position. Timeout was confirmed. Bowser catheter was placed in the bladder. Clear yellow urine return. Exam under anesthesia was performed, there was a large right vaginal hematoma, approximately 6 cm in size. Fundus firm, scant lochia from cervix. The perineal laceration sutures were cut with scissors, the wound was opened, and a large amount of clot was expressed from the right vaginal sulcus. There are multiple small areas of bleeding, these were suture ligated with 3-0 Vicryl. Additionally, there was a smaller right vaginal hematoma. This clot was evacuated, and the right vaginal wall tissue was extremely friable. This was also suture ligated to obtain hemostasis. Linwood was used as a coagulating agent within the bed of the right vaginal wall, as there was no active vessel bleeding. However, there were multiple small oozing areas. After multiple [id number] sutures throughout the vagina, hemostasis was observed. Next, the perineal laceration was again reapproximated in standard fashion using 3-0 Vicryl. A Bakri balloon was inserted into the vagina, inflated to 500 cc of sterile fluid in an attempt to provide vaginal pressure to decrease the likelihood of the vaginal hematoma refilling. Additionally, after the Bakri balloon was placed, a lap sponge was placed in the vagina to add additional pressure on the riley at this time, Marco Antonio incision. Excellent hemostasis was observed. Just prior to taking the patient to the operating room, CBC was drawn with hemoglobin 10.3 and hematocrit 30.5. At the conclusion of the case, hemoglobin was 9.0 and hematocrit was 26.6. Patient's vital signs were stable. She is awake and talking throughout the case. We will plan to check CBC again in 2 hours. We will keep Bakri balloon in place overnight, and will evaluate for removal in the morning. I attest to the content of the Intraoperative Record and any orders documented therein. Any exceptions are noted below.
[2019-03-05] MEDS ORDERED: CEFAZOLIN 3000MG/72.5 ML BAG IV SCH (22:00)
[2019-03-05] MEDS: CEFAZOLIN 1000MG 1,000 MG/7.5 ML SYR IV SCH (22:05)
--- NOTE | 2019-03-05 22:08 | Obstetrical Progress Note ---
Date of Service March 05, 2019 Subjective Patient is feeling ok, awake and talking and holding baby. Vitals stable. Perineum inspected, there is a small amount of blood on chux pad under buttocks. No blood per vagina. No blood in bakri ballon bag. Small amount of bruising and some swelling of perineum bilaterally. Patient states pain is well controlled. Lab is here to draw 10 o'clock CBC. Physical Exam Vital Signs (Past 24 Hours): Last Vital Signs Temp 37.1 C 03/05/19 21:30 Pulse 83 03/05/19 22:02 Resp 16 03/05/19 21:30 BP 122/63 03/05/19 22:02 Pulse Ox 97 03/05/19 21:30
[2019-03-05] MEDS: DOCUSATE SODIUM 100 MG CAP PO SCH (22:10)
[2019-03-05 22:25] LABS: Hematocrit (blood only) 24.2 % (37-47); Hemoglobin 8.2 g/dL (12.0-16.0); Mean Corpuscular Volume 83.4 fL (80-100); Mean Platelet Volume 9.7 fL (7.4-10.4); Platelet Count 236 K/uL (130-400); RDW Coefficient of Variation 12.6 % (11.5-14.5); RDW Standard Deviation 38.6 fL (36.4-46.3); White Blood Count 11.66 K/uL (4.8-10.8)
[2019-03-05 22:27] LABS: Mean Corpuscular Hgb Conc 33.9 g/dL (32-36)
[2019-03-05] MEDS ORDERED: SODIUM CHLORIDE 0.9% 250 ML IV PRN ×2 (22:30→22:31)
--- NOTE | 2019-03-05 22:34 | Obstetrical Progress Note ---
Date of Service March 05, 2019 Subjective Hgb has dropped from 11.1 prior to delivery to 8.2. Vitals stable. Discussed with patient that I would recommend transfusion, as I expect she will likely continue to drop. She is agreeable. Informed consent obtained. Will continue to monitor closely. Physical Exam Vital Signs (Past 24 Hours): Last Vital Signs Temp 37.1 C 03/05/19 21:30 Pulse 82 03/05/19 22:33 Resp 16 03/05/19 22:02 BP 114/58 L 03/05/19 22:33 Pulse Ox 97 03/05/19 21:30
[2019-03-06] MEDS: IBUPROFEN 600 MG TAB PO PRN ×4 (02:39→17:47)
[2019-03-06] MEDS: DOCUSATE SODIUM 100 MG CAP PO SCH ×2 (02:40→20:18)
--- NOTE | 2019-03-06 03:17 | Obstetrical Progress Note ---
Date of Service March 06, 2019 Subjective Patient seen/evaluated. She is awake, lying in bed nursing. Feeling more pressure in her buttocks - I think this is likely because saddle block is wearing off. Vitals stable. Bleeding stable. Fundus firm. Perineum appears stable. Blood transfusion still running. Physical Exam Vital Signs (Past 24 Hours): Last Vital Signs Temp 36.8 C 03/06/19 03:03 Pulse 74 03/06/19 03:03 Resp 16 03/06/19 03:03 BP 112/58 L 03/06/19 03:03 Pulse Ox 97 03/05/19 21:30
[2019-03-06] MEDS: MoRPHine SULFATE 2 MG/ML CARP IV PRN ×2 (03:55→07:02)
[2019-03-06 04:46] LABS: Basophils # (auto) 0.01 K/uL (0-0.2); Basophils % (auto) 0.1 %; Eosinophils # (auto) 0.04 K/uL (0-0.5); Eosinophils % (auto) 0.4 %; Hematocrit (blood only) 26.4 % (37-47); Immature Granulocytes # (auto) 0.04 K/uL (0.00-0.02); Immature Granulocytes % (auto) 0.4 %; Lymphocytes # (auto) 1.67 K/uL (1.2-3.4); Lymphocytes % (auto) 16.9 %; Mean Corpuscular Volume 83.8 fL (80-100); Mean Platelet Volume 10.1 fL (7.4-10.4); Monocytes # (auto) 0.64 K/uL (0.11-0.59); Monocytes % (auto) 6.5 %; Neutrophils # (auto) 7.49 K/uL (1.4-6.5); Neutrophils % (auto) 75.7 %; Platelet Count 214 K/uL (130-400); RDW Coefficient of Variation 12.9 % (11.5-14.5); RDW Standard Deviation 39.3 fL (36.4-46.3); Red Blood Count 3.15 M/uL (4.2-5.4); White Blood Count 9.89 K/uL (4.8-10.8)
[2019-03-06 04:47] LABS: Mean Corpuscular Hgb Conc 34.1 g/dL (32-36)
[2019-03-06] MEDS: LEVOTHYROXINE SODIUM 88 MCG TABLET PO SCH (06:27)
[2019-03-06] MEDS: CEFAZOLIN 1000MG 1,000 MG/7.5 ML SYR IV SCH ×2 (06:29→13:53)
[2019-03-06] MEDS ORDERED: MoRPHine SULFATE 4 MG/ML 1 ML CARP\\VIAL IV STA (07:16)
--- NOTE | 2019-03-06 07:31 | Anesthesiology Progress Note ---
Date of Service March 06, 2019 Anesthesia Post Procedure Vital Signs Vital Signs: Temp Pulse Pulse Resp BP BP Pulse Ox 03/06/19 07:00 83 129/76 03/06/19 06:27 85 99 03/06/19 06:22 75 98 03/06/19 06:17 70 99 03/06/19 06:12 69 98 03/06/19 06:07 69 98 03/06/19 06:02 67 98 03/06/19 05:57 70 98 03/06/19 05:52 72 98 03/06/19 05:47 78 98 03/06/19 05:42 71 98 03/06/19 05:37 73 97 03/06/19 05:32 85 98 03/06/19 05:27 69 97 03/06/19 05:22 70 97 03/06/19 05:17 74 98 03/06/19 05:12 77 98 03/06/19 05:07 80 98 03/06/19 05:02 73 97 03/06/19 04:57 75 96 03/06/19 04:52 72 96 03/06/19 04:47 70 97 03/06/19 04:42 73 97 03/06/19 04:37 71 97 03/06/19 04:32 76 96 03/06/19 04:27 76 96 03/06/19 04:22 79 97 03/06/19 04:17 80 97 03/06/19 04:12 81 97 03/06/19 04:07 81 96 03/06/19 04:02 81 98 03/06/19 03:57 76 97 03/06/19 03:33 36.8 C 71 18 113/59 L 03/06/19 03:30 36.8 C 71 18 113/59 L 03/06/19 03:03 36.8 C 74 16 112/58 L 03/06/19 02:38 36.6 C 77 18 114/63 03/06/19 02:36 36.6 C 77 18 114/63 03/06/19 02:23 36.9 C 76 20 115/61 03/06/19 02:21 36.9 C 76 20 115/61 03/06/19 01:59 36.8 C 76 16 100/51 L 03/06/19 01:56 76 100/51 L 03/06/19 01:31 36.9 C 88 18 102/51 L 03/06/19 01:30 36.9 C 88 18 102/51 L 03/06/19 01:01 36.8 C 73 16 108/55 L 03/06/19 01:00 36.8 C 73 16 108/55 L 03/06/19 00:46 78 106/56 L 03/06/19 00:31 37.0 C 75 18 109/58 L 03/06/19 00:30 37.0 C 75 18 109/58 L 03/06/19 00:15 36.9 C 90 16 104/54 L 03/05/19 23:52 36.8 C 75 16 112/64 03/05/19 23:31 36.7 C 75 18 112/56 L 03/05/19 22:33 82 114/58 L 03/05/19 22:32 16 03/05/19 22:02 83 16 122/63 03/05/19 21:30 37.1 C 78 16 121/65 97 03/05/19 21:10 37.1 C 73 14 128/73 97 03/05/19 21:00 81 13 119/68 97 03/05/19 20:50 82 14 122/70 98 03/05/19 20:43 36.9 C 69 12 127/88 97 03/05/19 18:33 68 20 113/66 03/05/19 18:02 94 H 28 H 141/86 H 03/05/19 15:54 36.9 C 82 20 121/72 03/05/19 15:22 97 H 18 117/75 03/05/19 15:07 92 H 113/85 03/05/19 14:52 86 18 148/71 H 03/05/19 14:37 80 154/74 H 03/05/19 14:22 85 129/76 03/05/19 14:07 82 141/82 H 03/05/19 13:30 84 88 L 03/05/19 13:29 91 H 100 03/05/19 13:24 86 100 03/05/19 13:21 78 93 03/05/19 13:19 83 100 03/05/19 13:14 83 100 03/05/19 13:09 88 100 03/05/19 11:26 36.8 C 83 129/72 03/05/19 10:49 83 /72 03/05/19 10:42 36.8 C 22 Pain Intensity Lower Abdomen: Pain Intensity: 0 Lower Back: Pain Intensity: 4 Perineal: Pain Intensity: 6 Notes Mental Status: alert / awake / arousable Patient Amnestic to Procedure: Yes Nausea / Vomiting: adequately controlled Pain: adequately controlled Airway Patency, RR, SpO2: stable & adequate BP & HR: stable & adequate Neuraxial Anesthesia: was administered and sensory block is resolving Anesthetic Complications: no major complications apparent Notes: Pt POD # 1 s/p evacuation of vaginal hematoma. Doing well. Has not been up and OOB due to pain down the perineal area. Denies having any BAUTISTA, backache, paresthsia, etc. VSS.
[2019-03-06 07:36] LABS: Hematocrit (blood only) 26.4 % (37-47)
--- NOTE | 2019-03-06 07:48 | Obstetrical Progress Note ---
Date of Service <Mitch Munoz DO - Last Filed: 03/06/19 07:48> March 06, 2019 Assessment & Plan <Mitch DO Alexander - Last Filed: 03/06/19 07:48> (1) 39 weeks gestation of : - continue post- care day #1, encourage (2) Vaginal hematoma: - requiring surgical incision with Evacuation of vaginal hematoma, exam under anesthesia, suture ligation of bleeding vessels, repair of perineal laceration, insertion of Bakri balloon, vaginal packing (one lap sponge). - will order Morphine 4mg IV x1 dose for pain, she already received 2mg for a total of 6mg. - she had two units of blood transfused and will repeat a H&H. - will continue to monitor pain, vitals for hemodynamic status. Subjective <Mitch Munoz DO - Last Filed: 03/06/19 07:48> Voiding: bowser catheter in place [place] notes difficulty with because of laying supine status-post surgical intervention with vaginal hematoma management. She notes her vaginal pain is an 6/10 and agrees with pain management plan for another dose of morphine. Physical Exam <Mitch Munoz DO - Last Filed: 03/06/19 07:48> Vital Signs (Past 24 Hours) Last Vital Signs Temp 36.8 C 03/06/19 03:33 Pulse 83 03/06/19 07:00 Resp 18 03/06/19 03:33 BP 129/76 03/06/19 07:00 Pulse Ox 99 03/06/19 06:27 Constitutional WD/WN, vitals as above cooperative appears uncomfortable Eyes + anicteric sclerae and EOM intact bilaterally Neck normal visual inspection and trachea midline Respiratory normal respiratory effort, lungs clear to auscultation Cardiovascular RRR, no murmur, no edema Gastrointestinal (Abdomen) Percussion/Palpation: abdomen soft; abdomen nontender uterine fundus is firm, non-tender, inferior to umbilicus Musculoskeletal Head/Neck/Chest: normocephalic and head atraumatic Skin no rashes, warm and dry Neurologic moves all extremities and awake Psychiatric A+Ox3, euthymic affect Genitourinary vaginal ecchymosis noted externally to labia majora, Results & Data <DO Fiona Babb Last Filed: 03/06/19 07:48> Laboratory Results Laboratory Results - last 24 hr 03/05/19 03/05/19 03/05/19 11:21 11:21 18:05 WBC 11.22 H 14.85 H RBC 3.90 L 3.62 L Hgb 11.1 L 10.3 L Hct 33.0 L 30.5 L MCV 84.6 84.3 MCH 28.5 28.5 MCHC 33.6 33.8 RDW Std Deviation 38.6 38.9 RDW Coeff of Roger 12.6 12.6 Plt Count 262 255 MPV 9.7 10.2 Immature Gran % (Auto) Neut % (Auto) Lymph % (Auto) [place]isher % (Auto) Eos % (Auto) Baso % (Auto) Immature Gran # (Auto) Neut # (Auto) Lymph # (Auto) [place] # (Auto) Eos # (Auto) Baso # (Auto) PT INR APTT PTT Ratio Blood Type A Positive Antibody Screen NEGATIVE Crossmatch See Detail 03/05/19 03/05/19 03/05/19 20:05 20:05 20:50 WBC 12.90 H RBC 3.19 L Hgb 9.0 L Hct 26.6 L MCV 83.4 MCH 28.2 MCHC 33.8 RDW Std Deviation 37.9 RDW Coeff of Roger 12.5 Plt Count 228 MPV 9.8 Immature Gran % (Auto) 0.3 Neut % (Auto) 83.5 Lymph % (Auto) 9.5 King[place]isher % (Auto) 6.4 Eos % (Auto) 0.2 Baso % (Auto) 0.1 Immature Gran # (Auto) 0.04 H Neut # (Auto) 10.77 H Lymph # (Auto) 1.23 Kingfisher # (Auto) 0.83 H Eos # (Auto) 0.02 Baso # (Auto) 0.01 PT Cancelled 10.1 INR Cancelled 1.0 APTT Cancelled 23.4 PTT Ratio Cancelled 0.9 Blood Type Antibody Screen Crossmatch 03/05/19 03/06/19 03/06/19 22:10 04:23 07:24 WBC 11.66 H 9.89 RBC 2.90 L 3.15 L Hgb 8.2 L 9.0 L 9.0 L Hct 24.2 L 26.4 L 26.4 L MCV 83.4 83.8 MCH 28.3 28.6 MCHC 33.9 34.1 RDW Std Deviation 38.6 39.3 RDW Coeff of Roger 12.6 12.9 Plt Count 236 214 MPV 9.7 10.1 Immature Gran % (Auto) 0.4 Neut % (Auto) 75.7 Lymph % (Auto) 16.9 Kingfisher % (Auto) 6.5 Eos % (Auto) 0.4 Baso % (Auto) 0.1 Immature Gran # (Auto) 0.04 H Neut # (Auto) 7.49 H Lymph # (Auto) 1.67 Kingfisher # (Auto) 0.64 H Eos # (Auto) 0.04 Baso # (Auto) 0.01 PT INR APTT PTT Ratio Blood Type Antibody Screen Crossmatch Medications Administered Acetaminophen (Tylenol) 650 mg PO Q6H PRN PRN Reason: Pain/BAUTISTA/Fever Stop: 04/04/19 14:32 Last Admin: 03/05/19 23:43 Dose: 650 mg Documented by: [id number] Admin: 03/05/19 17:14 Dose: 650 mg Documented by: [id number] Benzocaine (Dermoplast Pain Relieving [place]) 1 appln EXT PRN PRN PRN Reason: Perineal Discomfort Stop: 04/04/19 14:32 Last Admin: 03/05/19 17:11 Dose: 82.5 appln Documented by: [id number] Cocaine HCl (Supercream 0.870%) 1 gm EXT BID PRN PRN Reason: Hemorrhoidal Inflammation Stop: 03/19/19 14:32 Last Admin: 03/05/19 17:10 Dose: 15 ml Documented by: [id number] Docusate Sodium (Colace) 100 mg PO BID [facility] Stop: 04/04/19 20:59 Last Admin: 03/06/19 02:40 Dose: 100 mg Documented by: [id number] Admin: 03/05/19 22:10 Dose: Not Given Documented by: [id number] Cefazolin Sodium (Ancef 1000mg) 1,000 mg in 7.5 mls @ 2.5 mls/min IV Q8H [facility] Stop: 03/06/19 14:02 Last Admin: 03/06/19 06:29 Dose: 2.5 mls/min Documented by: [id number] Admin: 03/05/19 22:05 Dose: 2.5 mls/min Documented by: [id number] Sodium Chloride (Nss) 250 mls @ 15 mls/hr IV .[id number] PRN PRN Reason: For Transfusion Stop: 04/04/19 22:29 Last Infusion: 03/06/19 03:30 Dose: 0 mls/hr Documented by: [id number] Admin: 03/06/19 00:00 Dose: 15 mls/hr Documented by: [id number] Ibuprofen (Motrin) 600 mg PO Q4H PRN PRN Reason: Pain/BAUTISTA/Cramping/Fever Stop: 04/04/19 14:32 Last Admin: 03/06/19 02:39 Dose: 600 mg Documented by: [id number] Admin: 03/05/19 15:01 Dose: 600 mg Documented by: [id number] Levothyroxine Sodium (Synthroid) 88 mcg PO DAILYBB SAFIA Stop: 04/05/19 06:29 Last Admin: 03/06/19 06:27 Dose: 88 mcg Documented by: [id number] Morphine Sulfate (Morphine Sulfate) 2 mg IV Q2HWA PRN PRN Reason: Pain Stop: 03/19/19 21:47 Last Admin: 03/06/19 07:02 Dose: 2 mg Documented by: [id number] Admin: 03/06/19 03:55 Dose: 2 mg Documented by: [id number] <Taylor Whipple, - Last Filed: 03/08/19 00:22> Co-Signing Physician Notes I have seen/examined patient. I have read above note performed by resident and I agree with above. Any changes/additions are as follows: PPD#1, POD#1. Stable H/H. Vitals stable. I examined patient together with Dr Randall, who will be taking over patient's care for the day. Plan is to remove Bakri and packing later today. Taylor Whipple DO [facility]
[2019-03-06] MEDS ORDERED: NON-FORMULARY MEDICATION (Prenatal Vit-Iron Fum-Folic Ac [Prenatal Vitamin] 1 TAB) PO SCH (09:00)
[2019-03-06] MEDS: PRENATAL VITAMIN 1 TAB PO SCH (09:25)
--- NOTE | 2019-03-06 14:18 | Obstetrical Progress Note ---
Date of Service March 06, 2019 Patient stable minimal bleeding and she feels well I have removed 240 ml from the vaginal balloon will remove the remaining in the next hour Physical Exam Vital Signs (Past 24 Hours): Last Vital Signs Temp 36.8 C 03/06/19 11:14 Pulse 75 03/06/19 11:14 Resp 16 03/06/19 11:14 BP 115/71 03/06/19 11:14 Pulse Ox 99 03/06/19 06:27
--- NOTE | 2019-03-06 15:17 | Obstetrical Progress Note ---
Date of Service March 06, 2019 Balloon fully deflated and removed one sponge removed as well there is some initial bleeding but seems to be within expected amounts stat CBC and coags follow closely Physical Exam Vital Signs (Past 24 Hours): Last Vital Signs Temp 36.7 C 03/06/19 14:50 Pulse 67 03/06/19 14:41 Resp 18 03/06/19 14:50 BP 134/58 L 03/06/19 14:41 Pulse Ox 99 03/06/19 06:27
[2019-03-06 15:35] LABS: Basophils # (auto) 0.02 K/uL (0-0.2); Basophils % (auto) 0.2 %; Eosinophils # (auto) 0.05 K/uL (0-0.5); Eosinophils % (auto) 0.5 %; Hematocrit (blood only) 24.9 % (37-47); Hemoglobin 8.6 g/dL (12.0-16.0); Immature Granulocytes # (auto) 0.05 K/uL (0.00-0.02); Immature Granulocytes % (auto) 0.5 %; Lymphocytes # (auto) 2.17 K/uL (1.2-3.4); Lymphocytes % (auto) 19.9 %; Mean Platelet Volume 9.7 fL (7.4-10.4); Monocytes # (auto) 0.48 K/uL (0.11-0.59); Monocytes % (auto) 4.4 %; Neutrophils # (auto) 8.14 K/uL (1.4-6.5); Neutrophils % (auto) 74.5 %; Platelet Count 198 K/uL (130-400); RDW Coefficient of Variation 13.1 % (11.5-14.5); RDW Standard Deviation 40.4 fL (36.4-46.3); Red Blood Count 2.93 M/uL (4.2-5.4); White Blood Count 10.91 K/uL (4.8-10.8)
[2019-03-06 15:43] LABS: Mean Corpuscular Hgb Conc 34.5 g/dL (32-36)
[2019-03-06 15:45] LABS: INR 0.9 (0.9-1.1); Partial Thromboplastin Ratio 0.9; Partial Thromboplastin Time 24.7 Seconds (21.0-31.0); Prothrombin Time 9.5 Seconds (9.0-12.0)
--- NOTE | 2019-03-06 16:09 | Obstetrical Progress Note ---
Date of Service March 06, 2019 Count stable. Bleeding minimal after removal of balloon. AJ Physical Exam Vital Signs (Past 24 Hours): Last Vital Signs Temp 36.7 C 03/06/19 14:50 Pulse 67 03/06/19 14:41 Resp 18 03/06/19 14:50 BP 134/58 L 03/06/19 14:41 Pulse Ox 99 03/06/19 06:27
[2019-03-06 16:33] LABS: RBC Morphology Unremarkable
[2019-03-06] MEDS ORDERED: BISACODYL 5 MG TABEC PO SCH (20:00)
[2019-03-07] MEDS: IBUPROFEN 600 MG TAB PO PRN ×4 (00:37→22:38)
--- NOTE | 2019-03-07 06:54 | Obstetrical Progress Note ---
Date of Service March 07, 2019 Assessment & Plan (1) 39 weeks gestation of : - continue post- care day #2, encourage - will be able to get transferred to post- side today (2) Vaginal hematoma: - requiring surgical incision with Evacuation of vaginal hematoma, exam under anesthesia, suture ligation of bleeding vessels, repair of perineal laceration, insertion of Bakri balloon, vaginal packing (one lap sponge). - she had two units of blood transfused previously. - will continue to monitor pain, vitals for hemodynamic status. Vitals have been stable with no significant hypotensive episodes or tachycardia. Subjective Voiding: no voiding problems Passing Gas:: Yes Diet Tolerance:: regular diet Lochia:: Small Feeding Type:: breast feeding Taylor states she is doing much better today and her pain has improved. She denies fever, chills, chest pain, shortness of breath, nausea, vomiting. Physical Exam Vital Signs (Past 24 Hours) Last Vital Signs Temp 36.7 C 03/06/19 23:21 Pulse 81 03/07/19 03:05 Resp 20 03/06/19 23:21 BP 103/58 L 03/07/19 03:05 Pulse Ox 99 03/06/19 06:27 Constitutional WD/WN, vitals as above cooperative Eyes + anicteric sclerae and EOM intact bilaterally Neck normal visual inspection and trachea midline Respiratory normal respiratory effort, lungs clear to auscultation Cardiovascular RRR, no murmur, no edema Gastrointestinal (Abdomen) Percussion/Palpation: abdomen soft; abdomen nontender uterine fundus is firm, non-tender, 3cm inferior to umbilicus Musculoskeletal Head/Neck/Chest: normocephalic and head atraumatic Skin no rashes, warm and dry Neurologic moves all extremities and awake Psychiatric A+Ox3, euthymic affect Results & Data Laboratory Results Laboratory Results - last 24 hr 03/06/19 03/06/19 03/06/19 07:24 15:23 15:23 WBC 10.91 H RBC 2.93 L Hgb 9.0 L 8.6 L Hct 26.4 L 24.9 L MCV 85.0 MCH 29.4 MCHC 34.5 RDW Std Deviation 40.4 RDW Coeff of Roger 13.1 Plt Count 198 MPV 9.7 Immature Gran % (Auto) 0.5 Neut % (Auto) 74.5 Lymph % (Auto) 19.9 [place] % (Auto) 4.4 Eos % (Auto) 0.5 Baso % (Auto) 0.2 Immature Gran # (Auto) 0.05 H Neut # (Auto) 8.14 H Lymph # (Auto) 2.17 [place] # (Auto) 0.48 Eos # (Auto) 0.05 Baso # (Auto) 0.02 RBC Morphology Unremarkable PT 9.5 INR 0.9 APTT 24.7 PTT Ratio 0.9 Medications Administered Acetaminophen (Tylenol) 650 mg PO Q6H PRN PRN Reason: Pain/BAUTISTA/Fever Stop: 04/04/19 14:32 Last Admin: 03/05/19 23:43 Dose: 650 mg Documented by: [id number] Admin: 03/05/19 17:14 Dose: 650 mg Documented by: [id number] Benzocaine (Dermoplast Pain Relieving [place]) 1 appln EXT PRN PRN PRN Reason: Perineal Discomfort Stop: 04/04/19 14:32 Last Admin: 03/05/19 17:11 Dose: 82.5 appln Documented by: [id number] Cocaine HCl (Supercream 0.870%) 1 gm EXT BID PRN PRN Reason: Hemorrhoidal Inflammation Stop: 03/19/19 14:32 Last Admin: 03/05/19 17:10 Dose: 15 ml Documented by: [id number] Docusate Sodium (Colace) 100 mg PO BID SAFIA Stop: 04/04/19 20:59 Last Admin: 03/06/19 20:18 Dose: 100 mg Documented by: [id number] Admin: 03/06/19 02:40 Dose: 100 mg Documented by: [id number] Admin: 03/05/19 22:10 Dose: Not Given Documented by: [id number] Sodium Chloride (Nss) 250 mls @ 15 mls/hr IV .[id number] PRN PRN Reason: For Transfusion Stop: 04/04/19 22:29 Last Infusion: 03/06/19 03:30 Dose: 0 mls/hr Documented by: [id number] Admin: 03/06/19 00:00 Dose: 15 mls/hr Documented by: [id number] Ibuprofen (Motrin) 600 mg PO Q4H PRN PRN Reason: Pain/BAUTISTA/Cramping/Fever Stop: 04/04/19 14:32 Last Admin: 03/07/19 05:20 Dose: 600 mg Documented by: [id number] Admin: 03/07/19 00:37 Dose: 600 mg Documented by: [id number] Admin: 03/06/19 17:47 Dose: 600 mg Documented by: [id number] Admin: 03/06/19 13:52 Dose: 600 mg Documented by: [id number] Admin: 03/06/19 09:25 Dose: 600 mg Documented by: [id number] Admin: 03/06/19 02:39 Dose: 600 mg Documented by: [id number] Admin: 03/05/19 15:01 Dose: 600 mg Documented by: [id number] Levothyroxine S[facility] (Synth[facility]) [facility] Stop: 04/05/19 06:29 Last Admin: 03/06/19 06:27 Dose: 88 mcg Documented by: [id number] Morphine Sulfate (Morphine Sulfate) 2 mg IV Q2HWA PRN PRN Reason: Pain Stop: 03/19/19 21:47 Last Admin: 03/06/19 07:02 Dose: 2 mg Documented by: [id number] Admin: 03/06/19 03:55 Dose: 2 mg Documented by: [id number] Oxycodone/Acetaminophen (Percocet 5mg/325mg) 1 tab PO Q4H PRN PRN Reason: Pain not relieved by... Stop: 03/19/19 14:32 Last Admin: 03/06/19 10:34 Dose: 1 tab Documented by: [id number] Prenat Multivit/[place]/Iron/Folic Ac ( Vitamin) [facility] Stop: 04/05/19 08:59 Last Admin: 03/06/19 09:25 Dose: 1 tab Documented by: [id number]
--- NOTE | 2019-03-07 06:58 | Obstetrical Progress Note ---
Date of Service March 07, 2019 day #2 from significant hemorrhage blood transfusion and bilateral vaginal wall hematomas patient is doing well she still has her Moreno catheter and she has been able to stand and says her bleeding is scant at this stage her pain is much improved as well she has no extremity pain she is able to breast-feed and otherwise is well Assessment & Plan (1) Vaginal hematoma: We will check blood count this morning transferred to site does not meet discharge criteria today Physical Exam Vital Signs (Past 24 Hours) Last Vital Signs Temp 36.7 C 03/06/19 23:21 Pulse 81 03/07/19 03:05 Resp 20 03/06/19 23:21 BP 103/58 L 03/07/19 03:05 Pulse Ox 99 03/06/19 06:27 Patient appears well her uterus is firm nontender extremity exam negative vulva is inspected there is minimal bleeding there is bilateral swelling but this is unchanged from yesterday Moreno catheter is in place
[2019-03-07] MEDS ORDERED: ACETAMINOPHEN 325 MG TAB PO PRN (07:01)
[2019-03-07] MEDS ORDERED: IBUPROFEN 600 MG TAB PO PRN (07:01)
[2019-03-07] MEDS ORDERED: SUPERCREAM 0.870% 15 GM JAR EXT PRN ×2 (07:01→12:26)
[2019-03-07] MEDS ORDERED: OXYCODONE/ACETAMINOPHEN 5mg/325mg TAB PO PRN ×2 (07:01→12:26)
[2019-03-07] MEDS ORDERED: OXYTOCIN 30 UNITS/500 ML BAG IV PRN (07:01)
[2019-03-07] MEDS ORDERED: DIPHTHERIA/TETANUS/PERTUSSIS 0.5 ML SYR/VIAL IM ONE (07:01)
[2019-03-07] MEDS ORDERED: HYDROCORTISONE ACETATE 25 MG SUPP PR PRN ×2 (07:01→12:26)
[2019-03-07] MEDS ORDERED: BISACODYL 10 MG SUPP PR PRN ×2 (07:01→12:26)
[2019-03-07] MEDS ORDERED: BENZOCAINE 20% AER SPR 82.5 GM CAN EXT PRN ×2 (07:01→12:26)
[2019-03-07] MEDS: LEVOTHYROXINE SODIUM 88 MCG TABLET PO SCH (07:19)
[2019-03-07 07:24] LABS: Basophils # (auto) 0.02 K/uL (0-0.2); Basophils % (auto) 0.2 %; Eosinophils # (auto) 0.14 K/uL (0-0.5); Eosinophils % (auto) 1.4 %; Hemoglobin 8.4 g/dL (12.0-16.0); Immature Granulocytes # (auto) 0.03 K/uL (0.00-0.02); Immature Granulocytes % (auto) 0.3 %; Lymphocytes # (auto) 1.96 K/uL (1.2-3.4); Lymphocytes % (auto) 19.2 %; Mean Corpuscular Hgb Conc 33.6 g/dL (32-36); Mean Corpuscular Volume 85.3 fL (80-100); Mean Platelet Volume 9.5 fL (7.4-10.4); Monocytes # (auto) 0.56 K/uL (0.11-0.59); Monocytes % (auto) 5.5 %; Neutrophils # (auto) 7.52 K/uL (1.4-6.5); Neutrophils % (auto) 73.4 %; Platelet Count 201 K/uL (130-400); RDW Coefficient of Variation 13.3 % (11.5-14.5); RDW Standard Deviation 40.8 fL (36.4-46.3); Red Blood Count 2.93 M/uL (4.2-5.4); White Blood Count 10.23 K/uL (4.8-10.8)
--- NOTE | 2019-03-07 07:41 | Communication Note ---
Date of Service: March 07, 2019 Patient resting comfortably in bed. Notes minimal pain. Patient examined. Significant bilateral labial swelling. ecchymosis of the right labia majora up to almost the upper edge. ON the left there is slight labial bruising but bruising noted onto the buttocks around posteriorly to about 4cm above the hemorrhoids. Also bruising on the right buttock around to about the level of the anus. All areas are soft. One finger placed in vagina and no masses appreciated and cannot feel sutures. perineal sutures intact. Tolerated exam well. I have a concern about removing the Moreno today given that I have a concern about her voiding around the swollen labia and that replacing the catheter will be technically difficult. Plan to wait one more day to remove catheter. She is agreeable to this. Understands that she still may not be able to void and may need to go home with catheter.
[2019-03-07 07:50] LABS: RBC Morphology Unremarkable
[2019-03-07] MEDS: ACETAMINOPHEN 325 MG TAB PO PRN ×3 (08:31→21:00)
[2019-03-07] MEDS: DOCUSATE SODIUM 100 MG CAP PO SCH ×2 (08:31→21:00)
[2019-03-07] MEDS: PRENATAL VITAMIN 1 TAB PO SCH (08:31)
[2019-03-07] MEDS ORDERED: FERROUS SULFATE 325 MG TAB PO SCH (09:00)
[2019-03-07] MEDS ORDERED: PRENATAL VITAMIN 1 TAB PO SCH (09:00)
[2019-03-07] MEDS ORDERED: DOCUSATE SODIUM 100 MG CAP PO SCH (09:00)
[2019-03-07] MEDS ORDERED: IBUPROFEN 600 MG TAB PO ONE (12:24)
[2019-03-08] MEDS: IBUPROFEN 600 MG TAB PO PRN ×3 (03:10→12:11)
[2019-03-08 06:15] LABS: Hematocrit (blood only) 23.3 % (37-47); Hemoglobin 7.7 g/dL (12.0-16.0); Mean Corpuscular Volume 87.3 fL (80-100); Mean Platelet Volume 9.1 fL (7.4-10.4); Platelet Count 187 K/uL (130-400); RDW Coefficient of Variation 13.3 % (11.5-14.5); RDW Standard Deviation 42.1 fL (36.4-46.3); Red Blood Count 2.67 M/uL (4.2-5.4); White Blood Count 8.04 K/uL (4.8-10.8)
[2019-03-08] MEDS: LEVOTHYROXINE SODIUM 88 MCG TABLET PO SCH (06:58)
--- NOTE | 2019-03-08 07:07 | Obstetrical Progress Note ---
Date of Service <Mitch DO Alexander - Last Filed: 03/08/19 07:51> March 08, 2019 Assessment & Plan <Mitch DO Alexander - Last Filed: 03/08/19 07:51> (1) Vaginal hematoma: - requiring surgical incision with Evacuation of vaginal hematoma, exam under anesthesia, suture ligation of bleeding vessels, repair of perineal laceration, insertion of Bakri balloon, vaginal packing (one lap sponge). - she had two units of blood transfused previously. - will continue to monitor pain, vitals for hemodynamic status. Vitals have been stable with no significant hypotensive episodes or tachycardia. - Hgb this morning 7.7 - bowser cath was pulled this morning, will ensure no difficulty with voiding from vaginal swelling, she did have small void this morning after bowser was pulled - vaginal swelling has significantly improved and do not anticipate any difficulty with voiding, will plan for discharge home today with office follow up on Wednesday. - Discharge instructions reviewed at bedside. (2) Spontaneous vaginal delivery: 33 y/o, , at 39.6 weeks, A+, GBS(+) - PPD#2 - continue post- care, encourage and ambulation (3) 39 weeks gestation of : Subjective <Mitch DO Alexander - Last Filed: 03/08/19 07:51> Ambulation: ambulating normally Diet Tolerance:: regular diet Lochia:: Small Feeding Type:: breast feeding Taylor denies fever, chills, shortness of breath, chest pain, nausea, vomiting. She notes her pain is significantly improved from yesterday. She notes she had her urinary bowser pulled this morning and had a small void right after removal of bowser. She notes that she does have vaginal swelling and will attempt to urinate with full void to ensure no difficulty with voiding that would require bowser cath until swelling resolves. Physical Exam <Mitch DO Alexander - Last Filed: 03/08/19 07:51> Vital Signs (Past 24 Hours) Last Vital Signs Temp 36.9 C 03/08/19 00:15 Pulse 87 03/08/19 00:15 Resp 20 03/08/19 00:15 BP 111/66 03/08/19 00:15 Pulse Ox 99 03/07/19 09:50 Constitutional WD/WN, vitals as above cooperative Eyes + anicteric sclerae and EOM intact bilaterally Neck normal visual inspection and trachea midline Respiratory normal respiratory effort, lungs clear to auscultation Cardiovascular RRR, no murmur, no edema Gastrointestinal (Abdomen) Percussion/Palpation: abdomen soft; abdomen nontender uterine fundus is firm, non-tender, 3cm inferior to umbilicus. Musculoskeletal Head/Neck/Chest: normocephalic and head atraumatic Skin no rashes, warm and dry Neurologic moves all extremities and awake Psychiatric A+Ox3, euthymic affect Genitourinary vaginal swelling to labia majora has significantly improved. Ecchymosis is visible to labia majora extending to per-anal area. External hemmorhoid visible. Dr. Thacker present and nurse Tony Miller present too. Results & Data <Mitch Munoz, - Last Filed: 03/08/19 07:51> Laboratory Results Laboratory Results - last 24 hr 03/07/19 03/08/19 07:04 05:58 WBC 10.23 8.04 RBC 2.93 L 2.67 L Hgb 8.4 L 7.7 L Hct 25.0 L 23.3 L MCV 85.3 87.3 MCH 28.7 28.8 MCHC 33.6 33.0 RDW Std Deviation 40.8 42.1 RDW Coeff of Roger 13.3 13.3 Plt Count 201 187 MPV 9.5 9.1 Immature Gran % (Auto) 0.3 Neut % (Auto) 73.4 Lymph % (Auto) 19.2 [place] % (Auto) 5.5 Eos % (Auto) 1.4 Baso % (Auto) 0.2 Immature Gran # (Auto) 0.03 H Neut # (Auto) 7.52 H Lymph # (Auto) 1.96 [place] # (Auto) 0.56 Eos # (Auto) 0.14 Baso # (Auto) 0.02 RBC Morphology Unremarkable Medications Administered Acetaminophen (Tylenol) 650 mg PO Q6H PRN PRN Reason: Pain/BAUTISTA/Fever Stop: 04/06/19 12:25 Last Admin: 03/07/19 21:00 Dose: 650 mg Documented by: [id number] Admin: 03/07/19 15:14 Dose: 650 mg Documented by: [id number] Docusate Sodium (Colace) 100 mg PO BID SAFIA Stop: 04/06/19 20:59 Last Admin: 03/07/19 21:00 Dose: 100 mg Documented by: [id number] Ibuprofen (Motrin) 600 mg PO Q4H PRN PRN Reason: Pain/BAUTISTA/Cramping/Fever Stop: 04/06/19 12:25 Last Admin: 03/08/19 03:10 Dose: 600 mg Documented by: [id number] Admin: 03/07/19 22:38 Dose: 600 mg Documented by: [id number] Admin: 03/07/19 18:27 Dose: 600 mg Documented by: [id number] Levothyroxine Sodium (Synthroid) 88 mcg PO DAILYBB SAFIA Stop: 04/05/19 06:29 Last Admin: 03/08/19 06:58 Dose: 88 mcg Documented by: [id number] Admin: 03/07/19 07:19 Dose: 88 mcg Documented by: [id number] Admin: 03/06/19 06:27 Dose: 88 mcg Documented by: [id number] <Iris Thacker MD, FACOG - Last Filed: 03/08/19 07:56> Co-Signing Physician Notes Resident Physician Supervision Note: I interviewed and examined the patient. Discussed with Dr. Munoz and agree with findings and plan as documented in the note. Any exceptions or clarifications are listed here: Her vulva looks much better. Less swelling, able to see labia minora without difficulty. Bowser removed this am and I am hopeful she will void without difficulty. Bruising less colorful, has not spread beyond borders of yesterday. Meeting all other d/c criteria. Will have her seen in the office on m/t next week for reevaluation. d/c instructions reviewed. Documented By: Iris Thacker MD, FACOG
[2019-03-08] MEDS: DOCUSATE SODIUM 100 MG CAP PO SCH (08:33)
[2019-03-08] MEDS ORDERED: PRENATAL VITAMIN 1 TAB PO SCH (09:00)
[2019-03-08] MEDS ORDERED: BISACODYL 5 MG TABEC PO SCH ×2 (20:00)
--- NOTE | 2019-03-09 12:46 | Discharge Summary ---
Date of Service March 09, 2019 Admission HPI Per Admitting Provider 33yo @ 39 02/02 presents in spontaneous labor. Worsening ctx over the past few hours. No vaginal bleeding or gushing of fluid. + movement. complicated by GBS+, CMV exposure with negative IgM/IgG x 2, echo was negative. Hypothyroidism, takes synthroid. Recurrent shingles of left hand, had recurrence during this - was treated with valtrex. Discharge Data Consultations 03/05/19 11:14 Consult Anesthesiology Stat Procedures Performed Operation Date: 03/05/19 19:00 Actual Procedures p Evacuation of vaginal hematoma, exam under anesthesia(Not Applicable) - Taylor Whipple DO Hospital Course (1) Spontaneous vaginal delivery: (2) Vaginal hematoma: Patient was admitted in spontaneous labor, delivered vaginally. After d elivery, developed vaginal hematoma. Was taken to main OR for EUA, evacuation of clots, repair of laceration, insertion of Bakri balloon into vagina. 2u PRBC infused due to blood loss d/t hematoma. This was removed the following day, bowser catheter was left in place due to severe swelling. This was removed and she urinated on her own prior to discharge. Will followup within the next week in the office. Much improvement of swelling and bruising of perineal area prior to discharge. For further details, please see delivery note and surgical note.
--- NOTE | 2019-03-13 07:34 | Coding Query ---
ANEMIA To promote full compliance with coding requirements relating to patient care, physician participation is requested in all cases of optical glass wet inspector uncertainty. Please assist us with the question(s) below: Coding Question(s): The record reflects the following clinical findings: Hgb has dropped from 11.1 prior to delivery to 8.2. 2u PRBC infused due to blood loss d/t hematoma. If these findings are indicative of anemia, please specify the known or suspected type by placing an "X" within the parenthesis (x). If other, please document type. Examples are: ( ) Acute blood loss anemia ( ) Chronic blood loss anemia ( ) Aplastic anemia ( ) Iron deficient anemia ( ) Anemia, unspecified or other ( ) Other: (please specify) ( ) Unable to determine Thank you for your time, VICKI Mistry, [facility]
--- NOTE | 2019-03-13 08:29 | Coding Query ---
ANEMIA To promote full compliance with coding requirements relating to patient care, physician participation is requested in all cases of pre coder uncertainty. Please assist us with the question(s) below: PREVIOUS QUERY SIGNED, BUT NOT ANSWERED. Coding Question(s): Hgb has dropped from 11.1 prior to delivery to 8.2. 2u PRBC infused due to blood loss d/t hematoma. If these findings are indicative of anemia, please specify the known or suspected type by placing an "X" within the parenthesis (x). If other, please document type. Examples are: (X ) Acute blood loss anemia ( ) Acute Postoperative blood loss anemia ( ) Acute postoperative anemia due to dilutional fluids ( ) Chronic blood loss anemia ( ) Anemia of chronic disease ( ) Aplastic anemia ( ) Anemia due to renal disease ( ) Anemia in neoplastic disease ( ) Iron deficient anemia ( ) Anemia, unspecified or other ( ) Other: (please specify) ( ) Unable to determine Thank you, Ann Molina, VICKI, [facility]
== END 2019-03-08 16:15 | disposition home or self-care (01) | DRG 768 ==
LOC: OPB 10:32 → 4S1 10:34 → 4S2 16:45 → 4S1 21:39 → 4S2 03-07 10:00

== ENCOUNTER 2021-05-05 07:29 | Inpatient (IN) ==
[2021-05-05] MEDS ORDERED: OXYTOCIN 30 UNITS/500 ML BAG IV PRN ×4 (07:39→23:02)
--- NOTE | 2021-05-05 07:47 | History & Physical Report ---
Date of Service May 05, 2021 Assessment & Plan (1) Supervision of elderly multigravida: Cervix closed/thick/high. Bowser bulb placed. Small gush of blood through bowser at time of insert. FHT Cat 1 [place] none Will begin PCN. Continue to monitor closely, then start pitocin. Admission and Anticipated Discharge Date Admission Date: May 05, 2021 History of Present Illness Chief Complaint: IOL Primary Care Provider: Odalis Perez MD 35yo @ 39 02/02, eIOL. +FM, no VB, no LOF, no reg ctx. complicated by: Flu shot given 10/04/20 SB AMA *Weekly NST's @ 36wks Hypothyroidism *TFT's Q 4wks. Prior Vaginal hematoma with transfusion--pt would like to consider elective induction after 39wks (see note 4/8) *IOL for 05/05/21 with Ivey. GBS+ - treat in labor Allergies Allergy/AdvReac Type Severity Reaction Status Date / Time No Known Allergies Allergy Unknown Verified 04/30/21 14:51 Home Medications Medication Instructions Recorded Confirmed Type vitamins-iron fumarate 27 1 tab PO DAILY 07/06/19 04/30/21 History mg iron-folic acid 0.8 mg tablet Synthroid 75 mcg tablet 75 mcg PO .COMPLEX 90 Days #96 tab 11/27/20 04/30/21 Rx NS ferrous sulfate PO 04/22/21 04/30/21 History Patient History Medical History (Updated 04/21/21 @ 08:28 by Taylor Whipple, DO) ACL tear Anemia Benign skin lesion of neck benign cyst removed from right side of neck Discomfort of both ears Hypothyroid Influenza A Lump in neck Otitis media Shingles Vaginal hematoma Surgical History H/O oral surgery H/O vaginal surgery evacuation of hematoma s/p vaginal delivery and placement of Bakri balloon S/P anterior cruciate ligament surgery S/P tonsillectomy and adenoidectomy Family History (Updated 04/25/20 @ 10:45 by Iris Thacker MD, FACOG) Grandmother (Maternal) Hypertension Grandfather (Paternal) Cancer Colorectal cancer Depression Mother Thyroid disease Hypertension delivery Urinary calculus Grandfather (Maternal) Pulmonary fibrosis Other Alcohol abuse Denies family history of Ovarian cancer Breast cancer Social History (Updated 09/23/20 @ 14:08 by Laura Irvin) Smoking Status: Never smoker Hx Alcohol Use: No Hx Substance Use: No Preferred Language: Korean Communication Ability: Effective Beliefs That Will Affect Care: None marital status: marital status details: Nando (34) [phone] Current Living Situation: Family Current Living Situation Comment: lives with spouse and children, 2 dogs. current occupational status: employed current occupation: preschool speech therapist. Feels Safe at Home: Yes Dental Care, Regularly: Yes Physical Activity Frequency: Does not Exercise Assistive Devices: Glasses Review of Systems All systems reviewed & are unremarkable except as noted in HPI & below Physical Exam Constitutional: WD/WN, vitals as above Respiratory: normal respiratory effort, lungs clear to auscultation no respiratory distress Cardiovascular: Rate/Rhythm: regular rate and regular rhythm Gastrointestinal (Abdomen): Inspection/Auscultation: abdomen normal to inspection Percussion/Palpation: abdomen soft; abdomen nontender Gravid. No s/s chorio or abruption. Skin: no rashes, warm and dry Psychiatric: A+Ox3, euthymic affect Coding Level of Care Code None Diagnoses Supervision of elderly multigravida O09.529
[2021-05-05] MEDS ORDERED: PENICILLIN G POTASSIUM 6 MU in DEXTROSE 5% 250 ML IV ONE (08:00)
[2021-05-05] MEDS: LACTATED RINGER'S 1,000 ML IV PRN ×3 (08:20→20:59)
[2021-05-05 09:08] LABS: Hematocrit (blood only) 31.8 % (37-47); Hemoglobin 10.6 g/dL (12.0-16.0); Mean Corpuscular Hemoglobin 29.9 pg (25-34); Mean Corpuscular Hgb Conc 33.3 g/dL (32-36); Mean Corpuscular Volume 89.8 fL (80-100); Mean Platelet Volume 11.5 fL (7.4-10.4); Platelet Count 159 K/uL (130-400); RDW Coefficient of Variation 12.7 % (11.5-14.5); RDW Standard Deviation 41.7 fL (36.4-46.3); Red Blood Count 3.54 M/uL (4.2-5.4); White Blood Count 6.94 K/uL (4.8-10.8)
--- NOTE | 2021-05-05 09:23 | Labor Progress Brief Note ---
Date of Service May 05, 2021 Subjective FHT Cat 1 [place] irreg No further bleeding. Assessment & Plan Admission and Anticipated Discharge Date Admission Date: May 05, 2021 Results & Data ([facility]) Vital Signs (Past 12 Hours) Vital Signs Temp Pulse Resp BP 05/05/21 08:49 36.9 C 77 16 128/71 05/05/21 07:42 77 128/71 Coding Level of Care Code None
[2021-05-05] MEDS: PENICILLIN G POTASSIUM 3 MU in DEXTROSE 5% 100 ML IV PRN ×3 (12:27→20:54)
[2021-05-05] MEDS ORDERED: SODIUM CHLORIDE 0.9% INJ 10 ML VIAL ONE (19:33)
[2021-05-05] MEDS ORDERED: ePHEDrine sulfate 50 MG/ML AMP ONE (19:33)
[2021-05-05] MEDS ORDERED: BUPIVACAINE 0.25% 30 ML VIAL ONE (19:34)
[2021-05-05] MEDS ORDERED: fentaNYL 2MCG/ML ROPIVACAINE 1.25MG/ML 100 ML BAG EPI ONE (19:34)
[2021-05-05] MEDS ORDERED: fentaNYL citrate 100 MCG/2 ML VIAL ONE (19:34)
--- NOTE | 2021-05-05 19:38 | Labor Progress Brief Note ---
Date of Service May 05, 2021 Subjective Reason For Note: Routine Evaluation pt on birthing ball. pitocin infusing. aware i am taking over care. Assessment & Plan (1) Encounter for induction of labor: (2) GBS (group B Streptococcus carrier), +RV culture, currently : (3) 39 weeks gestation of : (4) Supervision of elderly multigravida: cont with pitocin, plan arom with regular ctx. fhts categ 1. Admission and Anticipated Discharge Date Admission Date: May 05, 2021 Physical Exam Constitutional: WD/WN, vitals as above Genitourinary: OB Exam Monitor Tracing: + external FHT monitor used, + external uterine monitor used (q3), + category I and + normal FHT variability Results & Data ([facility]) Vital Signs (Past 12 Hours) Vital Signs Temp Pulse Resp BP 05/05/21 19:10 97.9 F 18 05/05/21 19:04 74 125/77 05/05/21 18:45 81 116/69 05/05/21 16:44 70 119/70 05/05/21 14:45 98.1 F 70 16 127/79 05/05/21 11:14 97.7 F 72 16 119/64 05/05/21 08:49 98.4 F 77 16 128/71 05/05/21 07:42 77 128/71 Coding Level of Care Code None Diagnoses Encounter for induction of labor Z34.90 GBS (group B Streptococcus carrier), +RV culture, currently O99.820 39 weeks gestation of Z3A.39 Supervision of elderly multigravida O09.529
[2021-05-05] MEDS ORDERED: ONDANSETRON INJ 2 MG/ML 2 ML VIAL IV PRN (19:59)
[2021-05-05] MEDS ORDERED: NALOXONE HCL 1 MG in SODIUM CHLORIDE 0.9% 1000ML 1,000 ML IV PRN (19:59)
[2021-05-05] MEDS ORDERED: diphenhydrAMINE 50 MG/ML VIAL IV PRN (19:59)
[2021-05-05] MEDS ORDERED: ePHEDrine sulfate 50 MG/ML AMP IV PRN (19:59)
[2021-05-05] MEDS ORDERED: fentaNYL 2MCG/ML ROPIVACAINE 1.25MG/ML 100 ML BAG EPI PRN (19:59)
[2021-05-05] MEDS ORDERED: NALOXONE HCL 0.4 MG/1 ML VIAL/CARP IV PRN (19:59)
--- NOTE | 2021-05-05 19:59 | Anesthesiology Consultation ---
Date of Service May 05, 2021 Assessment & Plan ASA ASA2 Proposed Anesthesia Anesthesia Type: Labor Epidural Risk / Benefits Reviewed With: PT / POA / Parent / Guardian, Accepts Plan and Informed Consent Obtained History Height/Weight Height: 5 ft 5 in Weight: 75.296 kg Allergies Allergy/AdvReac Type Severity Reaction Status Date / Time No Known Allergies Allergy Unknown Verified 04/30/21 14:51 Medications Home Medications Medication Instructions Recorded Confirmed Last Taken vitamins-iron fumarate 27 1 tab PO DAILY 07/06/19 05/05/21 05/04/21 20:30 mg iron-folic acid 0.8 mg tablet Synthroid 75 mcg tablet 75 mcg PO .COMPLEX 90 Days #96 tab 11/27/20 05/05/21 05/05/21 05:15 NS ferrous sulfate [Iron (ferrous 325 mg PO DAILY 05/05/21 05/05/21 05/04/21 20:30 sulfate)] Active Medications Generic Name Dose Route Start Last Admin Trade Name Freq PRN Reason Stop Dose Admin Penicillin G Potassium 3 mu/ 106 mls @ 100 mls/hr 05/05/21 07:39 05/05/21 16:35 Dextrose IV 05/15/21 07:38 106 mls/hr Q4H PRN Administration Give until delivery Lactated Ringer's 1,000 mls @ 125 mls/hr 05/05/21 07:39 05/05/21 16:10 Lr IV 05/07/21 07:38 125 mls/hr .Q8H PRN Administration L&D Protocol Protocol Oxytocin 30 units in 500 mls @ 11 mls/hr 05/05/21 15:42 05/05/21 19:20 Pitocin IV 05/07/21 15:41 0.66 units/hr .Q24H PRN 11 mls/hr Labor Induction/Augmentation Titration Protocol 0.66 UNITS/HR Past Medical History Medical History (Updated 05/05/21 @ 19:37 by Yeny Ivey MD, FACOG) ACL tear Anemia Benign skin lesion of neck benign cyst removed from right side of neck Discomfort of both ears Hypothyroid Influenza A Lump in neck Otitis media Shingles Vaginal hematoma Exercise / Class Metabolic Activity II 4-5 Yardwork/Stairs/Walk up hill Past Family History Family History (Updated 04/25/20 @ 10:45 by Iris Thacker MD, FACOG) Grandmother (Maternal) Hypertension Grandfather (Paternal) Cancer Colorectal cancer Depression Mother Thyroid disease Hypertension delivery Urinary calculus Grandfather (Maternal) Pulmonary fibrosis Other Alcohol abuse Denies family history of Ovarian cancer Breast cancer Past Surgical History Surgical History H/O oral surgery H/O vaginal surgery evacuation of hematoma s/p vaginal delivery and placement of Bakri balloon S/P anterior cruciate ligament surgery S/P tonsillectomy and adenoidectomy Past Anesthesia History No Hx of Anesthesia Complications and No Family Hx of Anesthesia Complications History of PONV No Hx of PONV and No Hx of Motion Sickness Social History Smoking Status: Never smoker Do You Dip or Chew Tobacco: No Hx Alcohol Use: No Hx Substance Use: No Review of Systems denies fever/cough/ colds/ chest pain/ SOB/ MARY ANN denies MARY ANN Physical Exam Vital Signs Last Vital Signs Temp 36.6 C 05/05/21 19:10 Pulse 72 05/05/21 20:25 Resp 18 05/05/21 19:10 BP 119/70 05/05/21 20:25 Pulse Ox 98 05/05/21 20:23 ENMT Mouth: no TMJ abnormality and no dentition abnormality Thyromental Distance: > or= 3.5 Finger Breadths Mallampati Class: II Neck neck extension not limited Respiratory normal respiratory effort; no respiratory distress Auscultation: lungs clear to auscultation bilaterally Cardiovascular Rate/Rhythm: regular rate and regular rhythm Neurologic moves all extremities Psychiatric Orientation: alert and oriented x 3 Testing Laboratory Results 05/05/21 08:28
--- NOTE | 2021-05-05 20:59 | Labor Progress Brief Note ---
Date of Service May 05, 2021 Subjective Reason For Note: Routine Evaluation now comfortable with epidural. Assessment & Plan (1) 39 weeks gestation of : (2) Encounter for induction of labor: (3) Supervision of elderly multigravida: (4) GBS (group B Streptococcus carrier), +RV culture, currently : c/w pit and pcn. will see how arom helps labor pattern. fhts categ 1. Admission and Anticipated Discharge Date Admission Date: May 05, 2021 Physical Exam Constitutional: WD/WN, vitals as above Genitourinary: Manual OB Exam: + cervical dilation 4 cm, + cervical effacement 60%, + station -2 and + amniotic fluid (arom) clear OB Exam Monitor Tracing: + external FHT monitor used, + external uterine monitor used (q2-3), + category I and + normal FHT variability pit at 11 Results & Data ([facility]) Vital Signs (Past 12 Hours) Vital Signs Temp Pulse Resp BP Pulse Ox 05/05/21 20:53 69 98 05/05/21 20:52 67 99/57 L 05/05/21 20:48 64 99 05/05/21 20:43 74 98 05/05/21 20:38 85 99 05/05/21 20:35 64 109/59 L 05/05/21 20:33 69 105/57 L 99 05/05/21 20:31 65 113/60 05/05/21 20:30 18 05/05/21 20:29 70 124/70 05/05/21 20:28 83 99 05/05/21 20:27 141 H 119/72 05/05/21 20:25 72 119/70 05/05/21 20:23 73 114/69 98 05/05/21 20:21 78 123/74 05/05/21 20:19 72 120/77 05/05/21 20:18 79 99 05/05/21 20:17 64 119/71 05/05/21 20:15 68 132/78 05/05/21 20:13 83 98 05/05/21 20:08 82 99 05/05/21 20:03 78 99 05/05/21 19:10 97.9 F 18 05/05/21 19:04 74 125/77 05/05/21 18:45 81 116/69 06/07/21 16:44 70 119/70 05/05/21 14:45 98.1 F 70 16 127/79 05/05/21 11:14 97.7 F 72 16 119/64 Coding Level of Care Code None Diagnoses 39 weeks gestation of Z3A.39 Encounter for induction of labor Z34.90 Supervision of elderly multigravida O09.529 GBS (group B Streptococcus carrier), +RV culture, currently O99.820
[2021-05-05] MEDS ORDERED: oxyCODONE/ACETAMINOPHEN 5mg/325mg TAB PO PRN (23:02)
--- NOTE | 2021-05-05 23:04 | Delivery Summary ---
Vaginal Delivery Summary Date of Service May 05, 2021 Vaginal Delivery Summary and 2nd Degree LAC The patient dilated to complete and pushed to deliver a viable female infant Apgars 8 and 9 via over 2nd degree perineal laceration. Mouth and nose bulb suctioned at perineum. Shoulders and body delivered with ease. Infant was vigorous and crying at . Cord clamped at 30 seconds of life and to maternal abdomen where the cord was then doubly clamped and cut. Placenta delivered spontaneously and intact, three-vessel cord. Hemostasis achieved with dilute pitocin and uterine massage and drainage of the bladder for approximately 300 cc under sterile conditions. Laceration repaired in layers in usual fashion with 3-0 vicryl and 4-0 vicryl. Cervix and sulci intact. EBL 300 cc. Mother and baby stable recovery. [facility] Vaginal Delivery Charge Vaginal Delivery Codes: 02575 global code for the antepartum, delivery, and post- Delivery Type Details: and 2nd Degree LAC
[2021-05-05] MEDS ORDERED: OXYTOCIN 20 UNITS in LACTATED RINGER'S 1,000 ML IV SCH (23:15)
[2021-05-06] MEDS ORDERED: BENZOCAINE 20% AER SPR 82.5 GM CAN EXT PRN (01:23)
[2021-05-06] MEDS ORDERED: SUPERCREAM 0.870% 15 GM JAR EXT PRN (01:23)
[2021-05-06] MEDS ORDERED: HYDROCORTISONE ACETATE 25 MG SUPP PR PRN (01:23)
[2021-05-06] MEDS ORDERED: DIPHTHERIA/TETANUS/PERTUSSIS 0.5 ML SYR/VIAL IM ONE (01:30)
[2021-05-06] MEDS: IBUPROFEN 600 MG TAB PO PRN ×4 (02:06→20:41)
--- NOTE | 2021-05-06 05:57 | Obstetrical Progress Note ---
Date of Service <Jas Austin MD - Last Filed: 05/06/21 07:37> May 06, 2021 Assessment & Plan <Jas Austin MD - Last Filed: 05/06/21 07:37> (1) Encounter for induction of labor: - PNL: Rh pos, RI, GBS pos treated intrapartum, COVID neg - Feels well today. Eating well, voiding well, ambulating well - Pain well controlled with ibuprofen 600mg Q4H PRN - Routine care -- OOB, ambulation, diet progression as tolerated - After discharge will have 6 week follow-up with Dr. Ivey Subjective <Jas Austin MD - Last Filed: 05/06/21 07:37> Taylor is a 35 y/o female who is PPD #1 following at 39 3/7 weeks. She reports feeling well overall this morning. Moderate abdominal cramping and 4/10 pain well managed on analgesics. Voiding well. Tolerating meals overnight without difficulty. Patient has been able to ambulate some. Has persistent lochia with some improvement this morning. Currently without issues. Review of Systems Denies fever or chills. Denies shortness of breath or cough. Denies chest pain. Denies breast pain. Denies dysuria. Denies leg pain or leg swelling. Denies headache or changes in vision. Physical Exam <Jas Austin MD - Last Filed: 05/06/21 07:37> General: Alert, oriented. No acute distress. Cardiac: Regular rate and rhythm. No murmurs. Respiratory: Clear to auscultation bilaterally a/p, no wheezes/rales/rhonchi. No increased work of breathing. Symmetrical chest rise. No respiratory distress. Abdomen: Soft, nontender, nondistended. Bowel sounds present. Uterus: Uterine fundus firm, palpable ~1 cm below umbilicus. Lower Extremities: No lower extremity edema or swelling. No deep calf pain. Tiffanie's negative bilaterally. Results & Data ([facility]) <Jas Austin MD - Last Filed: 05/06/21 07:37> Vital Signs (Past 12 Hours) Vital Signs Temp Pulse Pulse Resp BP BP Pulse Ox 05/06/21 02:30 36.9 C 83 20 117/77 98 05/06/21 01:34 78 121/64 05/06/21 01:19 83 115/58 L 05/06/21 01:04 85 129/63 05/06/21 00:49 81 107/61 05/06/21 00:35 18 05/06/21 00:19 79 101/64 05/06/21 00:05 18 05/06/21 00:04 81 126/68 05/05/21 23:49 78 122/67 05/05/21 23:35 18 05/05/21 23:20 18 05/05/21 23:19 75 136/75 05/05/21 23:05 18 05/05/21 23:04 75 128/74 05/05/21 22:50 18 05/05/21 22:49 79 134/77 05/05/21 22:38 87 99 05/05/21 22:35 66 18 118/60 05/05/21 22:33 66 98 05/05/21 22:28 71 98 05/05/21 22:23 80 99 05/05/21 22:18 89 98 05/05/21 22:13 92 H 100 05/05/21 22:08 73 100/59 L 99 05/05/21 22:03 65 97 05/05/21 22:00 18 05/05/21 21:58 65 99 05/05/21 21:53 78 99 05/05/21 21:52 67 108/64 05/05/21 21:48 73 97 05/05/21 21:43 72 97 05/05/21 21:38 63 97 05/05/21 21:36 67 103/55 L 05/05/21 21:33 61 97 05/05/21 21:30 18 05/05/21 21:28 65 97 05/05/21 21:23 61 97 05/05/21 21:21 62 100/59 L 05/05/21 21:18 60 97 05/05/21 21:13 62 97 05/05/21 21:08 63 97 05/05/21 21:06 67 100/56 L 05/05/21 21:03 67 97 05/05/21 21:00 18 05/05/21 20:58 65 97 05/05/21 20:53 69 98 05/05/21 20:52 67 99/57 L 05/05/21 20:48 64 99 05/05/21 20:43 74 98 05/05/21 20:38 85 99 05/05/21 20:35 64 109/59 L 05/05/21 20:33 69 105/57 L 99 05/05/21 20:31 65 113/60 05/05/21 20:30 18 05/05/21 20:29 70 124/70 05/05/21 20:28 83 99 05/05/21 20:27 141 H 119/72 05/05/21 20:25 72 119/70 05/05/21 20:23 73 114/69 98 05/05/21 20:21 78 123/74 05/05/21 20:19 72 120/77 05/05/21 20:18 79 99 05/05/21 20:17 64 119/71 05/05/21 20:15 68 132/78 05/05/21 20:13 83 98 05/05/21 20:08 82 99 05/05/21 20:03 78 99 05/05/21 19:10 36.6 C 18 05/05/21 19:04 74 125/77 05/05/21 18:45 81 116/69 <Yeny Ivey MD, FACOG - Last Filed: 05/06/21 08:12> Co-Signing Physician Notes Resident Physician Supervision Note: I was present with Dr. Austin during the history and exam. I discussed the case with the resident and agree with the findings and plan as documented in the note. Any exceptions or clarifications are listed here: doing well, routine pp care. breast, rhpos, ri. Documented By: Yeny Ivey MD, FACOG Resident Activity Tracking <Jas Austin MD - Last Filed: 05/06/21 07:37> Resident Involvement: Resident Care Provided Care Provided: OB Delivery
[2021-05-06] MEDS: LEVOTHYROXINE SODIUM 75 MCG TABLET PO SCH (06:04)
[2021-05-06] MEDS ORDERED: FERROUS SULFATE 325 MG TAB PO ONE (07:46)
[2021-05-06] MEDS: FERROUS SULFATE 325 MG TAB PO SCH (07:47)
[2021-05-06] MEDS: DOCUSATE SODIUM 100 MG CAP PO SCH ×2 (07:47→20:42)
--- NOTE | 2021-05-06 07:59 | Anesthesia Procedure Note ---
Date of Service May 06, 2021 Anesthesia Post Epidural Note Vital Signs Vital Signs: Temp Pulse Resp BP Pulse Ox 36.9 C 83 20 117/77 98 05/06/21 02:30 05/06/21 02:30 05/06/21 02:30 05/06/21 02:30 05/06/21 02:30 Pain Intensity Lower Medial Abdomen: Pain Intensity: 0 Notes Mental Status: alert / awake / arousable Nausea / Vomiting: adequately controlled Pain: adequately controlled Airway Patency, RR, SpO2: stable & adequate BP & HR: stable & adequate Hydration State: stable & adequate Neuraxial Anesthesia: was administered and sensory block is resolving Anesthetic Complications: no major complications apparent Epidural: Removed without complications and With tip intact
[2021-05-06] MEDS: ACETAMINOPHEN 325 MG TAB PO PRN ×2 (15:19→20:41)
[2021-05-06] MEDS: PRENATAL VITAMIN 1 TAB PO SCH (15:19)
[2021-05-07] MEDS: LEVOTHYROXINE SODIUM 75 MCG TABLET PO SCH (06:07)
--- NOTE | 2021-05-07 06:07 | Obstetrical Progress Note ---
Date of Service <Jas Austin MD - Last Filed: 05/07/21 06:07> May 07, 2021 Assessment & Plan <Jas Austin MD - Last Filed: 05/07/21 06:07> (1) Encounter for induction of labor: - PNL: Rh pos, RI, GBS pos treated intrapartum, COVID neg - Feels well today. Eating well, voiding well, ambulating well - Pain well controlled with ibuprofen 600mg Q4H PRN - Routine care -- OOB, ambulation, diet progression as tolerated - After discharge will have 6 week follow-up with Dr. Ivey Subjective <Jas Austin MD - Last Filed: 05/07/21 06:07> Taylor is a 35 y/o female who is PPD #2 following at 39 3/7 weeks. She reports feeling well overall this morning. Mild abdominal cramping and 4/10 pain well managed on analgesics. Voiding well. Tolerating meals overnight without difficulty. Patient has been able to ambulate some. Has persistent lochia with some improvement this morning. Currently without issues. Review of Systems Denies fever or chills. Denies shortness of breath or cough. Denies chest pain. Denies breast pain. Denies dysuria. Denies leg pain or leg swelling. Denies headache or changes in vision. Physical Exam <Jas Austin MD - Last Filed: 05/07/21 06:07> General: Alert, oriented. No acute distress. Cardiac: Regular rate and rhythm. No murmurs. Respiratory: Clear to auscultation bilaterally a/p, no wheezes/rales/rhonchi. No increased work of breathing. Symmetrical chest rise. No respiratory distress. Abdomen: Soft, nontender, nondistended. Bowel sounds present. Uterus: Uterine fundus firm, palpable ~2 cm below umbilicus. Lower Extremities: No lower extremity edema or swelling. No deep calf pain. Tiffanie's negative bilaterally. Results & Data ([facility]) <Jas Austin MD - Last Filed: 05/07/21 06:07> Vital Signs (Past 12 Hours) Vital Signs Temp Pulse Resp BP 05/07/21 00:05 36.7 C 80 20 116/77 <Taylor Whipple DO - Last Filed: 05/07/21 08:43> Co-Signing Physician Notes Resident Physician Supervision Note: I was present with Dr. Mccray during the history and exam. I discussed the case with the resident and agree with the findings and plan as documented in the note. Any exceptions or clarifications are listed here: PPD#2 doing well. DC home. Documented By: Taylor Whipple DO Resident Activity Tracking <Jas Austin MD - Last Filed: 05/07/21 06:07> Resident Involvement: Resident Care Provided Care Provided: OB Delivery
[2021-05-07] MEDS: FERROUS SULFATE 325 MG TAB PO SCH (08:25)
[2021-05-07] MEDS: DOCUSATE SODIUM 100 MG CAP PO SCH (08:25)
[2021-05-07] MEDS: PRENATAL VITAMIN 1 TAB PO SCH (08:25)
[2021-05-07] MEDS: IBUPROFEN 600 MG TAB PO PRN (08:25)
[2021-05-07 08:41] VITALS: BP 114/74; PULSE 66; TEMP 97.9; O2SAT 99
[2021-05-11] MEDS ORDERED: LEVOTHYROXINE SODIUM 150 MCG TABLET PO SCH (06:30)
== END 2021-05-07 09:45 | disposition home or self-care (01) | DRG 807 ==
LOC: 4S1 07:29 → 4S2 05-06 02:20

== ENCOUNTER 2024-02-26 13:06 | Inpatient (IN) ==
[2024-02-26] MEDS ORDERED: LIDOCAINE 1% LOCAL 20 ML VIAL INFIL PRN (13:38)
--- NOTE | 2024-02-26 13:45 | Labor Progress Brief Note ---
Date of Service February 26, 2024 Subjective at 38w2d with SROM at home, followed by onset of painful ctx. No VB, good FM, fluid clear. Assessment & Plan (1) Supervision of elderly multigravida: Plan: SROM, early labor. Would recc augmentation. GBS pos, PCN ordered / to start. Physical Exam Genitourinary: /-2 FHT Cat 1 Adeline Q5-6 Results & Data Vital Signs (Past 12 Hours) Vital Signs Temp Pulse BP 02/26/24 13:17 98.1 F 02/26/24 13:16 73 135/79 Coding Level of Care Code None Diagnoses Supervision of elderly multigravida O09.529
[2024-02-26] MEDS: LACTATED RINGER'S 1,000 ML IV PRN (14:08)
[2024-02-26] MEDS: PENICILLIN GK 6 MU in DEXTROSE 5% 250 ML IV STA (14:09)
--- NOTE | 2024-02-26 14:23 | Anesthesiology Consultation ---
Date of Service February 26, 2024 Assessment & Plan (1) Encounter for pre-operative examination: Chart Review Chart Review: Acceptable Risk for Labor Epidural History Height/Weight Height: 5 ft 5 in Weight: 78.471 kg Allergies Allergy/AdvReac Type Severity Reaction Status Date / Time lactose AdvReac Diarrhea Verified 02/26/24 13:30 Medications Home Medications Medication Instructions Recorded Confirmed Last Taken Synthroid 75 mcg tablet 75 mcg PO DAILY #90 tabs 11/09/23 02/26/24 02/25/24 (levothyroxine) [id number] 1 tab PO DAILY 12/31/23 02/26/24 02/25/24 [] Active Medications Generic Name Dose Route Start Last Admin Trade Name Freq PRN Reason Stop Dose Admin Lactated Ringer's 1,000 mls @ 125 mls/hr 02/26/24 13:38 02/26/24 14:08 Lr IV 02/28/24 13:37 125 mls/hr .Q8H PRN Administration L&D Protocol Protocol Penicillin G Potassium 6 mu/ 262 mls @ 262 mls/hr 02/26/24 13:38 02/26/24 14:09 Dextrose IV 02/26/24 14:37 262 mls/hr NOW STA Administration Past Medical History Medical History GBS (group B Streptococcus carrier), +RV culture, currently Shingles Vaginal hematoma delivery 2018 Benign skin lesion of neck benign cyst removed from right side of neck Hypothyroid Anemia ACL tear Past Family History Family History Grandmother (Maternal) Hypertension Grandfather (Paternal) Cancer Colorectal cancer Depression Mother Thyroid disease Hypertension delivery Urinary calculus Grandfather (Maternal) Pulmonary fibrosis Other Alcohol abuse Denies family history of Ovarian cancer Breast cancer Past Surgical History Surgical History H/O vaginal surgery evacuation of hematoma s/p vaginal delivery and placement of Bakri balloon H/O oral surgery S/P anterior cruciate ligament surgery S/P tonsillectomy and adenoidectomy Social History Smoking Status: Never smoker Do You Dip or Chew Tobacco: No Hx Alcohol Use: No Hx Substance Use: No substance use type: does not use Physical Exam Vital Signs Last Vital Signs Temp 36.7 C 02/26/24 13:17 Pulse 73 02/26/24 13:16 BP 135/79 02/26/24 13:16 Testing Laboratory Results pending
[2024-02-26 14:37] LABS: Hematocrit (blood only) 32.3 % (37.0-47.0); Mean Corpuscular Hemoglobin 30.1 pg (25.0-34.0); Mean Corpuscular Hgb Conc 34.1 g/dL (32.0-36.0); Mean Corpuscular Volume 88.5 fL (80.0-100.0); Mean Platelet Volume 11.1 fL (9.4-12.4); Platelet Count 174 K/uL (130-400); RDW Coefficient of Variation 12.7 % (11.5-14.5); RDW Standard Deviation 41.5 fL (36.4-46.3); Red Blood Count 3.65 M/uL (4.20-5.40)
[2024-02-26] MEDS: fentaNYL citrate PF 100 MCG/2 ML VIAL ONE (17:40)
[2024-02-26] MEDS: BUPIVACAINE 0.25% PF 30 ML VIAL ONE ×2 (17:40→17:41)
[2024-02-26] MEDS: SODIUM CHLORIDE 0.9% PF INJ 10 ML VIAL ONE (17:41)
[2024-02-26] MEDS: fentANYL 2 MCG/ML BUPIVacaine 0.125%-NSS 100ML BAG ONE (17:46)
[2024-02-26] MEDS ORDERED: LIDOCAINE 2% MPF LOCAL 5 ML VIAL EPI PRN (17:49)
[2024-02-26] MEDS ORDERED: NALOXONE HCL 1 MG in SODIUM CHLORIDE 0.9% 1,000 ML IV PRN (17:49)
[2024-02-26] MEDS ORDERED: SODIUM CHLORIDE 0.9% PF INJ 10 ML VIAL EPI PRN (17:49)
[2024-02-26] MEDS ORDERED: ROPIVACAINE 0.5% PF 5 MG/ML 20 ML VIAL EPI PRN (17:49)
[2024-02-26] MEDS ORDERED: fentANYL 2 MCG/ML BUPIVacaine 0.125%-NSS 100ML BAG EPI PRN (17:49)
[2024-02-26] MEDS ORDERED: fentaNYL citrate PF 100 MCG/2 ML VIAL EPI PRN (17:49)
[2024-02-26] MEDS ORDERED: BUPIVACAINE 0.25% PF 30 ML VIAL EPI PRN (17:49)
[2024-02-26] MEDS ORDERED: ePHEDrine sulfate 50 MG/ML AMP IV PRN (17:49)
[2024-02-26] MEDS ORDERED: ONDANSETRON INJ 2 MG/ML 2 ML VIAL IV PRN (17:49)
[2024-02-26] MEDS ORDERED: NALOXONE HCL 0.4 MG/1 ML VIAL/CARP IV PRN (17:49)
[2024-02-26] MEDS: LIDOCAINE 2%/EPINEPHRINE 1:200,000 20 ML PF ONE (17:53)
[2024-02-26] MEDS: PENICILLIN GK 3 MU in DEXTROSE 5% 100 ML IV PRN (18:06)
[2024-02-26] MEDS: OXYTOCIN 30 UNITS/NSS 30 UNITS/500 ML BAG IV PRN ×2 (18:10→20:57)
[2024-02-26] MEDS: BUPIVACAINE 0.25% PF 30 ML VIAL EPI STA (18:51)
[2024-02-26] MEDS: fentaNYL citrate PF 100 MCG/2 ML VIAL EPI STA (18:51)
[2024-02-26] MEDS: SODIUM CHLORIDE 0.9% PF INJ 10 ML VIAL EPI STA (18:52)
[2024-02-26] MEDS: LIDOCAINE 2%/EPINEPHRINE 1:200,000 20 ML PF EPI STA (18:52)
--- NOTE | 2024-02-26 20:53 | Delivery Summary ---
Vaginal Delivery Summary Date of Service February 26, 2024 Vaginal Delivery Summary DIAGNOSES: 1. Garrett intrauterine at 38w2d gestation. 2. Spontaneous onset of labor. 3. Group B Streptococcus Neg. PROCEDURE: Spontaneous vaginal delivery and repair of 2nd degree laceration. SURGEON: Ce Bragg MD. ORGANIZATIONAL PSYCHOLOGIST: None. ESTIMATED BLOOD LOSS: 200 mL. COMPLICATIONS: None. PLACENTA: Spontaneous and intact with a 3-vessel cord. DISPOSITION: Stable to labor and delivery. DESCRIPTION: The patient pushed well and brought the head to in DOA position. The infant's head was allowed to deliver with contraction force and no further active pushing, with the perineum protected during this time. There was no nuchal cord. The left shoulder was anterior. The shoulders and body delivered without any difficulty, and the infant was placed on the maternal abdomen. It was vigorous and moving all extremities, and making respiratory efforts. The cord was doubly clamped by the MD and then cut by the FOB. The placenta delivered spontaneously and was noted to be intact and with a 3VC. The cervix, vagina and perineum were examined and were found to have a second degree laceration which was repaired in the usual manner with vicryl suture, including a crown stitch to rebuild the perineal body. The fundus was firm and lochia minimal immediately after delivery. [facility] Vaginal Delivery Charge Vaginal Delivery Codes: 42071 global code for the antepartum, delivery, and post-
[2024-02-26] MEDS: ePHEDrine sulfate 50 MG/ML AMP ONE (20:55)
[2024-02-26] MEDS ORDERED: OXYTOCIN 30 UNITS/NSS 30 UNITS/500 ML BAG IV PRN (21:04)
[2024-02-26] MEDS ORDERED: oxyCODONE/ACETAMINOPHEN 5mg/325mg TAB PO PRN (21:04)
[2024-02-26] MEDS ORDERED: BENZOCAINE 20% SPRY 85 APPLN/85 GM CAN EXT PRN (21:04)
[2024-02-26] MEDS ORDERED: HYDROCORTISONE ACETATE 25 MG SUPP PR PRN (21:04)
--- NOTE | 2024-02-26 22:11 | Anesthesia Procedure Note ---
Date of Service February 26, 2024 Anesthesia Post Epidural Note Vital Signs Vital Signs: Temp Pulse Resp BP Pulse Ox 36.7 C 68 20 137/62 98 02/26/24 19:00 02/26/24 21:56 02/26/24 20:01 02/26/24 21:56 02/26/24 20:44 Notes Mental Status: alert / awake / arousable and participated in evaluation Patient Amnestic to Procedure: No Nausea / Vomiting: adequately controlled Pain: adequately controlled Airway Patency, RR, SpO2: stable & adequate BP & HR: stable & adequate Hydration State: stable & adequate Neuraxial Anesthesia: was administered and sensory block is resolving Anesthetic Complications: no major complications apparent and Pt Satisfied with anesthetic care Epidural: Removed without complications and With tip intact
[2024-02-26] MEDS: DIPHTHER/TETAN/PERTUS Vaccine (Tdap, Adol/Adult) 0.5mL IM ONE (22:34)
[2024-02-26] MEDS: DOCUSATE SODIUM 100 MG CAP PO SCH (22:35)
[2024-02-27] MEDS: IBUPROFEN 600 MG TAB PO PRN (04:25)
[2024-02-27] MEDS: LEVOTHYROXINE SODIUM 75 MCG TABLET PO SCH (06:18)
[2024-02-27] MEDS: ACETAMINOPHEN 325 MG TAB PO PRN (06:20)
[2024-02-27 06:50] LABS: Hematocrit (blood only) 27.2 % (37.0-47.0); Hemoglobin 9.5 g/dl (12.0-16.0); Mean Corpuscular Hemoglobin 30.7 pg (25.0-34.0); Mean Corpuscular Hgb Conc 34.9 g/dL (32.0-36.0); Mean Platelet Volume 11.2 fL (9.4-12.4); Platelet Count 152 K/uL (130-400); RDW Coefficient of Variation 12.8 % (11.5-14.5); RDW Standard Deviation 40.8 fL (36.4-46.3); Red Blood Count 3.09 M/uL (4.20-5.40); White Blood Count 8.85 K/ul (4.8-10.8)
[2024-02-27] MEDS: PRENATAL VITAMIN 1 TAB PO SCH (08:02)
--- NOTE | 2024-02-27 08:03 | Obstetrical Progress Note ---
Date of Service February 27, 2024 Assessment & Plan (1) state: Recovering normally. May be able to leave at 24hr but this will be late in the evening, likely stay till AM. Subjective Ambulation: ambulating normally Voiding: no voiding problems Passing Gas:: Yes Diet Tolerance:: regular diet Lochia:: Small Feeding Type:: breast feeding Physical Exam Constitutional WD/WN, vitals as above Eyes PERRL, conjunctivae normal, anicteric sclerae Neck normal visual inspection Respiratory normal respiratory effort and able to speak in complete sentences; no respiratory distress and no labored breathing Cardiovascular Rate/Rhythm: regular rate and regular rhythm Extremities: no edema Chest (Breasts) Chest: normal inspection of chest Gastrointestinal (Abdomen) Inspection/Auscultation: abdomen normal to inspection Soft, postgravid Psychiatric A+Ox3, euthymic affect Genitourinary OB Exam Abdomen: + fundal height Fundus: + firm and + relation to umbilicus (fundus just below umbilicus); not tender Results & Data Vital Signs (Past 12 Hours) Vital Signs Temp Pulse Pulse Resp BP BP Pulse Ox 02/27/24 04:30 98.2 F 73 18 111/73 98 02/26/24 22:41 76 128/62 02/26/24 22:26 75 130/58 L 02/26/24 22:11 92 H 145/60 H 02/26/24 21:56 68 137/62 02/26/24 21:41 61 117/59 L 02/26/24 21:26 65 124/65 02/26/24 21:14 71 116/55 L 02/26/24 20:56 67 124/63 02/26/24 20:44 71 98 02/26/24 20:42 72 123/62 02/26/24 20:39 76 98 02/26/24 20:34 78 98 02/26/24 20:29 80 98 02/26/24 20:27 78 119/58 L 02/26/24 20:24 84 99 02/26/24 20:19 106 H 83 L 02/26/24 20:14 75 100 02/26/24 20:13 69 125/61 02/26/24 20:09 62 99 02/26/24 20:04 64 98 O2 Del Method 02/27/24 04:30 Room Air 02/26/24 22:41 02/26/24 22:26 02/26/24 22:11 02/26/24 21:56 02/26/24 21:41 02/26/24 21:26 02/26/24 21:14 02/26/24 20:56 02/26/24 20:44 02/26/24 20:42 02/26/24 20:39 02/26/24 20:34 02/26/24 20:29 02/26/24 20:27 02/26/24 20:24 02/26/24 20:19 02/26/24 20:14 02/26/24 20:13 02/26/24 20:09 02/26/24 20:04
[2024-02-27] MEDS: bisacodyL 5 MG TABEC PO SCH (19:56)
[2024-02-28] MEDS ORDERED: bisacodyL 10 MG SUPP PR PRN (21:04)
== END 2024-02-27 21:35 | disposition home or self-care (01) | DRG 807 ==
LOC: OPB 13:06 → 4S1 13:08 → 4E2 23:07
DX: Z37.0 Single live birth; Z3A.38 38 weeks gestation of pregnancy; O70.1 Second degree perineal laceration during delivery; O42.02 Full-term premature rupture of membranes, onset of labor within 24 hours of rupture; Z91.018 Allergy to other foods; Z79.890 Hormone replacement therapy